=== PATIENT | female | born 1985 | race Caucasian/White ===

== ENCOUNTER 2016-08-02 20:33 | Emergency (ER) | payer SELFPAY ==
[2016-08-02 20:53] VITALS: RESP 18
[2016-08-02] MEDS ORDERED: ONDANSETRON 4 MG/2 ML VIAL IVP STA (21:37)
[2016-08-02] MEDS ORDERED: SODIUM CHLORIDE 0.9% 1,000 ML IV STA (21:37)
[2016-08-02] MEDS ORDERED: cloNIDine HCL 0.1 MG TAB PO STA (21:38)
--- NOTE | 2016-08-02 22:10 | ED ---
Anxiety HPI - General Chief Complaint: Anxiety Stated Complaint: detox Time Seen by Provider: 08/02/16 21:34 Source: patient Mode of arrival: ambulatory - History of Present Illness Initial Comments: Patient complains of withdrawal from opiates. She has generalized myalgias. She has nausea and vomiting. She has no chest pain, belly pain, back pain. She has no lightheadedness or dizziness. She has no focal weakness. She has no fevers or chills. She has no neck pain or stiffness. She was not in a detox center. She is trying to do her own detox a home. - Related Data Home Medications: Previous Rx's Medication Instructions Recorded Ondansetron [Zofran ODT] 4 mg PO Q8HR #30 tab 08/02/16 cloNIDine HCL [Catapres] 0.1 mg PO BID #20 tab 08/02/16 Allergies/Adverse Reactions: Allergies Allergy/AdvReac Type Severity Reaction Status Date / Time No Known Allergies Allergy Verified 08/02/16 20:53 Review of Systems ROS Statement: Those systems with pertinent positive or pertinent negative responses have been documented in the HPI. ROS Other: All systems not noted in ROS Statement are negative. Past Medical History Past Medical History: No Reported History History of Any Multi-Drug Resistant Organisms: None Reported Past Surgical History: No Surgical Hx Reported Past Psychological History: No Psychological Hx Reported Smoking Status: Current every day smoker Past Alcohol Use History: Rare Past Drug Use History: Cocaine, Heroin, Marijuana, Prescription Drug Abuse General Exam Limitations: no limitations General appearance: alert, in no apparent distress Head exam: Present: atraumatic, normocephalic, normal inspection Eye exam: Present: normal appearance, PERRL, EOMI. Absent: scleral icterus, conjunctival injection, periorbital swelling ENT exam: Present: normal exam, mucous membranes moist Neck exam: Present: normal inspection. Absent: tenderness, meningismus, lymphadenopathy Respiratory exam: Present: normal lung sounds bilaterally. Absent: respiratory distress, wheezes, rales, rhonchi, stridor Cardiovascular Exam: Present: regular rate, normal rhythm, normal heart sounds. Absent: systolic murmur, diastolic murmur, rubs, gallop, clicks GI/Abdominal exam: Present: soft, normal bowel sounds. Absent: distended, tenderness, guarding, rebound, rigid Extremities exam: Present: normal inspection, full ROM, normal capillary refill. Absent: tenderness, pedal edema, joint swelling, calf tenderness Back exam: Present: normal inspection Neurological exam: Present: alert, oriented X3, CN II-XII intact Psychiatric exam: Present: normal affect, normal mood Skin exam: Present: warm, dry, intact, normal color. Absent: rash Course Vital Signs 08/02/16 20:49 Temperature 99.1 F Pulse Rate 94 Respiratory 18 Rate Blood Pressure 124/77 O2 Sat by Pulse 99 Oximetry Medical Decision Making - Medical Decision Making Patient complains of symptoms related to opiate withdrawal. Her physical exam is benign. Her vital signs are within acceptable limits. She is given IV fluids and antiemetics. She is tolerating oral intake. She is stable for discharge. Disposition Clinical Impression: Opiate withdrawal Disposition: HOME SELF-CARE Condition: Good Instructions: Opioid Withdrawal (ED) Prescriptions: Ondansetron [Zofran ODT] 4 mg PO Q8HR #30 tab cloNIDine HCL [Catapres] 0.1 mg PO BID #20 tab Time of Disposition: 22:08
[2016-08-02 22:18] LABS: Anion Gap 22 mmol/L; Calcium 10.3 mg/dL (8.4-10.2); Carbon Dioxide 23 mmol/L (22-30); Chloride 101 mmol/L (98-107); Glucose 145 mg/dL (74-99); Non-African American GFR(MDRD) >60 (>60 ml/min/1.73 sqM); Sodium 146 mmol/L (137-145)
[2016-08-02 22:20] LABS: Blood Urea Nitrogen 25 mg/dL (7-17); Potassium 5.2 mmol/L (3.5-5.1)
[2016-08-02 22:46] VITALS: BP 104/72; PULSE 92; TEMP 98.8
== END 2016-08-02 22:44 | disposition home or self-care (01) ==
LOC: EC 20:33
DX: F11.23 Opioid dependence with withdrawal (principal); F17.200 Nicotine dependence, unspecified, uncomplicated
CPT/HCPCS: 99284; 96374; 36415; 80048; J2405; 96361; 96376

== ENCOUNTER 2017-03-11 16:50 | Inpatient (IN) | payer MEDICAID, OTHER ==
--- NOTE | 2017-03-11 17:27 | ED ---
Psych HPI - General Chief Complaint: Psychiatric Symptoms Stated Complaint: Mental Health Time Seen by Provider: 03/11/17 17:03 Source: patient, RN notes reviewed Mode of arrival: ambulatory Limitations: no limitations - History of Present Illness Initial Comments: This a 31-year-old female presents emergency Department with chief complaint of psychiatric evaluation. Patient states that she has been having intermittent suicidal thoughts. Patient states she has a history of drug abuse. Patient states that she was in detention but has not used any heroin since being released 2 weeks ago. Patient states that she is very depressed states that she is miserable person to be around and states that she needs help. Patient denies being homicidal. - Related Data Home Medications Medication Instructions Recorded Confirmed No Known Home Medications [No 03/11/17 03/11/17 Known Home Medications] Allergies Allergy/AdvReac Type Severity Reaction Status Date / Time No Known Allergies Allergy Verified 03/11/17 17:08 Review of Systems ROS Statement: Those systems with pertinent positive or pertinent negative responses have been documented in the HPI. ROS Other: All systems not noted in ROS Statement are negative. Past Medical History Past Medical History: No Reported History History of Any Multi-Drug Resistant Organisms: None Reported Past Surgical History: No Surgical Hx Reported Past Psychological History: Depression Smoking Status: Current every day smoker Past Alcohol Use History: Rare Past Drug Use History: Cocaine, Heroin, Marijuana, Prescription Drug Abuse General Exam Limitations: no limitations General appearance: alert, in no apparent distress Head exam: Present: atraumatic, normocephalic, normal inspection Neck exam: Present: normal inspection. Absent: tenderness, meningismus, lymphadenopathy Respiratory exam: Present: normal lung sounds bilaterally. Absent: respiratory distress, wheezes, rales, rhonchi, stridor Cardiovascular Exam: Present: regular rate, normal rhythm, normal heart sounds. Absent: systolic murmur, diastolic murmur, rubs, gallop, clicks Neurological exam: Present: alert, oriented X3, CN II-XII intact, reflexes normal. Absent: motor sensory deficit Psychiatric exam: Present: normal affect, normal mood Skin exam: Present: warm, dry, intact, normal color. Absent: rash Course Vital Signs 03/11/17 16:52 Temperature 98.5 F Pulse Rate 87 Respiratory 18 Rate Blood Pressure 129/68 O2 Sat by Pulse 98 Oximetry Disposition Clinical Impression: Depression, Drug abuse Disposition: ADMITTED IP TO THIS HOSP Condition: Stable Referrals: None,Stated [Primary Care Provider] - 1-2 days Time of Disposition: 18:02
--- NOTE | 2017-03-11 18:17 | XR ---
EXAMINATION TYPE: XR hand complete RT DATE OF EXAM: 03/11/2017 COMPARISON: NONE HISTORY: Hand swelling TECHNIQUE: 3 views FINDINGS: I see no fracture nor dislocation. Joint spaces are normal. There are no erosions. IMPRESSION: Normal right hand. No sign of inflammatory arthritis.
[2017-03-11] MEDS ORDERED: MAG HYDROX/AL HYDROX/SIMETH 30 ML CUP PO PRN (18:43)
[2017-03-11 18:56] LABS: Appearance,Urine Clear (Clear); Bilirubin,Urine Negative (Negative); Glucose,Urine (UA) 2+ (Negative); Leukocyte Esterase,Urine Negative (Negative); Mucus,Urine Moderate /hpf; Nitrite,Urine Negative (Negative); Particle Count 4903; Protein,Urine Trace (Negative); RBC,Urine 3 /hpf (0-5); Specific Gravity,Urine 1.017 (1.001-1.035); Squamous Epithelial Cell,Urine 2 /hpf (0-4); UA Billing (MACRO vs. MICRO) MICRO; WBC,Urine 6 /hpf (0-5)
[2017-03-11 19:00] LABS: Ketones,Urine 2+ (Negative)
[2017-03-11] MEDS: LORazepam 1 MG TAB PO PRN (20:26)
--- NOTE | 2017-03-11 20:37 | P.MDCNMH ---
History of Present Illness H&P Date: 03/11/17 Chief Complaint: Suicidal ideations Tammy Dawson is a 31-year-old female with history of heroin and crack cocaine usage who presented to the ED with suicidal attempt and continued suicidal ideations. The patient states that she attempted to commit suicide yesterday by using heroin however was unsuccessful. Has never attempted suicide prior to this episode. She reports feeling extremely anxious and has had difficulty sleeping secondary to her anxiety. She states that she last used heroin as well as smoked crack yesterday. Denies any previous medical problems and takes no medications on a daily basis. Denies any current chest pain, shortness of breath, nausea, vomiting diarrhea, fevers, chills or night sweats. Patient states she has been living at a hotel. Review of Systems Constitutional: Patient reports no fever, no chills, no weight changes, no change in appetite Eyes: Patient reports no double vision, no visual changes ENT: Patient reports no rhinorrhea, no post nasal drip, no sore throat Cardiovascular: Patient reports no chest, no edema, no palpitations, no syncope , no orthopnea, no paroxysmal nocturnal dyspnea. Respiratory: Patient reports no dyspnea, no cough, no wheeze Gastrointestinal: Patient reports no nausea, no vomiting, no constipation, no diarrhea Genitourinary: Patient reports no dysuria, no urinary frequency, no hematuria. Musculoskeletal: Patient reports no unusual joint pain, no joint swelling or weakness. Patient reports no muscular pain. Psychiatric: Patient reports anxiety, suicidal ideations, recent suicide attempt. Also reports insomnia. Patient reports no changes in memory. Endocrine: Patient reports no thirst, no polyuria, no cold intolerance, no heat intolerance. Neurological: Patient reports no unusual paresthesias, no seizures, no paresis , no paralysis, no facila droop, no headache. Heme/Lymphatic: Patient reports bruising on both legs. No bleeding tendency, no lymphadenopathy. Allergic/ Immunologic: Patient reports no recent allergic reactions or immunologic history. Skin: Reports areas of excoriations on both legs Past Medical History Past Medical History: No Reported History History of Any Multi-Drug Resistant Organisms: None Reported Past Surgical History: No Surgical Hx Reported Past Psychological History: Anxiety, Depression Smoking Status: Current every day smoker (1 pack per day x 15 years) Past Alcohol Use History: Rare Past Drug Use History: Cocaine (daily user x 1 year), Heroin (daily user x 7 years), Marijuana, Prescription Drug Abuse Medications and Allergies Home Medications Medication Instructions Recorded Confirmed Type No Known Home Medications [No 03/11/17 03/11/17 History Known Home Medications] Allergies Allergy/AdvReac Type Severity Reaction Status Date / Time No Known Allergies Allergy Verified 03/11/17 17:08 Physical Exam Osteopathic Statement: *. No significant issues noted on an osteopathic structural exam other than those noted in the History and Physical/Consult. Vitals: Vital Signs Temp Pulse Pulse Resp BP BP Pulse Ox 03/11/17 19:22 97.1 F L 87 18 124/73 03/11/17 18:45 97.8 F 77 18 135/85 100 03/11/17 16:52 98.5 F 87 18 129/68 98 Intake and Output 03/11/17 03/11/17 03/11/17 06:59 14:59 22:59 Other: Weight 58.967 kg Patient Weight 03/12/17 06:59 Weight 58.967 kg Constitutional:No acute distress, conversant, pleasant. Eyes:Anicteric sclerae, moist conjunctiva, no lid-lag PERRLA ENMT: NC/AT Oropharynx clear, no erythema, exudates Neck:Supple, Firm, no masses, or JVD, No carotid bruits, No thyromegaly Lungs:Clear to auscultation, Clear to percussion, Normal respiratory effort, no accessory muscle use Cardiovascular: Heart regular in rate and rhythm, No murmurs, gallops, or rubs, No peripheral edema Abdominal: Soft, Nontender, no guarding, rebound or rigidity, Abdomen moving with respiration, Normoactive bowel sounds, No hepatomegaly, No splenomegaly, No palpable mass , No abdominal wall hernia noted Skin: Normal temperature, tone, texture, turgor, No induration, No subcutaneous nodules. Numerous small excoriations noted on both legs, R > L. Bruising noted on anterior left lower extremity. No lesions, No ulcers Extremities: No digital cyanosis, No clubbing, Pedal pulses intact and symmetrical, Radial pulses intact and symmetrical, Normal gait and station, No calf tenderness Psychiatric: Alert and oriented to person, place and time, anxious appearing. Neuro: Muscles Strength 5/5 in all 4 extremities, Sensation to light touch grossly present throughout, Cranial nerves II-XII grossly intact, No focal sensory deficits Cranial Nerve Examination - Cranial Nerves Cranial Nerve II- Optic: Intact Cranial Nerve III- Oculomotor: Intact Cranial Nerve IV- Trochlear: Intact Cranial Nerve V- Trigeminal: Intact Cranial Nerve - Abducens: Intact Cranial Nerve VII- Facial: Intact Cranial Nerve VIII- Auditory: Intact Cranial Nerve IX- Glossopharyngeal: Intact Cranial Nerve X- Vagus: Intact Cranial Nerve XI- Accessory: Intact Cranial Nerve XII- Hypoglossal: Intact Results Labs: Abnormal Lab Results - Last 24 Hours (Table) 03/11/17 03/11/17 Range/Units 17:03 17:03 Urine Protein Trace H (Negative) Urine Glucose (UA) 2+ H (Negative) Urine Ketones 2+ H (Negative) Urine Blood Large H (Negative) Urine WBC 6 H (0-5) /hpf Urine Mucus Moderate H (None) /hpf Urine Opiates Screen Detected H (NotDetected) Urine Cocaine Screen Detected H (NotDetected) U Marijuana (THC) Screen Detected H (NotDetected) Assessment and Plan (1) Suicidal ideations Narrative/Plan: Maintain suicidal precautions on mental health unit Your mental health care Current Visit: Yes Status: Acute Code(s): R45.851 - SUICIDAL IDEATIONS SNOMED Code(s): 9947085 (2) Abnormal urinalysis Narrative/Plan: 2+ glucose and 2+ ketones identified on urinalysis. Likely secondary to diet. Check CBC, CMP, mg, phos. Check fingerstick blood glucose Monitor vital signs per unit protocol Current Visit: Yes Status: Acute Code(s): R82.90 - UNSPECIFIED ABNORMAL FINDINGS IN URINE SNOMED Code(s): 496576535 (3) Depression Narrative/Plan: Psychiatric medications per mental health team Maintain suicidal precautions Current Visit: Yes Status: Acute Code(s): F32.9 - MAJOR DEPRESSIVE DISORDER , SINGLE EPISODE, UNSPECIFIED SNOMED Code(s): 17993032 (4) Drug abuse Narrative/Plan: Monitor for signs/symptoms of opioid and cocain withdrawal Benzos PRN withdrawal Current Visit: Yes Status: Acute Code(s): F19.10 - OTHER PSYCHOACTIVE SUBSTANCE ABUSE, UNCOMPLICATED SNOMED Code(s): 94466149 Plan: Check CBC, CMP, Mg, Phos Check fingerstick blood glucose Monitor vital signs per unit protocol Maintain suicide precautions per unit protocol Your mental health care Time with Patient: Greater than 30
[2017-03-11 20:44] VITALS: BMI 20.9
[2017-03-12 06:20] LABS: Glucose,Whole Blood 109 mg/dL (75-99)
[2017-03-12 08:57] LABS: Basophils % (A) 0 %; CHCM 33.6; Eosinophils # (A) 0.2 k/uL (0-0.7); Eosinophils % (A) 3 %; HCT 38.5 % (34.0-46.0); HDW 2.51; HGB 12.7 gm/dL (11.4-16.0); Luc % (Auto) 2; Lymphocytes # (A) 1.2 k/uL (1.0-4.8); Lymphocytes % (A) 22 %; MCH 30.4 pg (25.0-35.0); MCHC 32.8 g/dL (31.0-37.0); MCV 92.5 fL (80.0-100.0); Mean Platelet Volume 7.2; Monocytes # (A) 0.2 k/uL (0-1.0); Monocytes % (A) 4 %; Neutrophils # (A) 3.8 k/uL (1.3-7.7); Neutrophils % (A) 68 %; RBC 4.17 m/uL (3.80-5.40); RDW 14.5 % (11.5-15.5); WBC 5.6 k/uL (3.8-10.6); WBC (Perox) 5.47
[2017-03-12 09:14] LABS: Anion Gap 10 mmol/L; Calcium 8.8 mg/dL (8.4-10.2); Carbon Dioxide 24 mmol/L (22-30); Chloride 109 mmol/L (98-107); Glucose 155 mg/dL (74-99); Non-African American GFR(MDRD) >60 (>60 ml/min/1.73 sqM); Sodium 143 mmol/L (137-145); Total Bilirubin 0.6 mg/dL (0.2-1.3); Total Protein 6.1 g/dL (6.3-8.2)
[2017-03-12] MEDS: NICOTINE 14MG/24HR PATCH TRANSDERM SCH (09:32)
[2017-03-12 09:48] LABS: ALT 41 U/L (9-52); AST 28 U/L (14-36); Alkaline Phosphatase 67 U/L (38-126); Blood Urea Nitrogen 6 mg/dL (7-17); Magnesium 1.9 mg/dL (1.6-2.3); Phosphorus 2.8 mg/dL (2.5-4.5); Potassium 3.5 mmol/L (3.5-5.1)
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
[2017-03-12] MEDS: LORazepam 1 MG TAB PO PRN ×2 (12:11→20:55)
[2017-03-12] MEDS: ACETAMINOPHEN TAB 325 MG TAB PO PRN ×2 (12:11→20:55)
[2017-03-13] MEDS: LORazepam 1 MG TAB PO PRN (08:51)
[2017-03-13] MEDS: NICOTINE 14MG/24HR PATCH TRANSDERM SCH (08:51)
[2017-03-13] MEDS ORDERED: traZODone HCL 50 MG TAB PO PRN (09:41)
--- NOTE | 2017-03-13 09:47 | P.PN ---
Progress Note - Text Interval history: The patient is found in group she follows me to an interview room. She reports having difficulty sleeping last night and subsequently she feels tired. She was able to get some of her meal. She continues to feel anxious and she is experiencing some mild opiate withdrawal. We discussed that she could utilize clonidine if her blood pressure was not too low. We reviewed information I received from her mother. The patient is more alert and attending the interview better today. The patient states that she really doesn' t believe she is experienced any hypomanic or manic episode while sober. With that said we decided to proceed with an antidepressant that could also address her anxiety and we would monitor for any symptoms of provoked hypomania or ariel. Mental status exam: The patient is a female appearing her stated age. She is dressed casually in her own clothing hygiene grooming fair. Eye contacts appropriate. She continues to rock back and forth in her chair. She reports a depressed mood with suicidal ideation as late as last evening. She is endorsing no auditory or visual hallucinations or specific delusions and there appears to be no evidence of psychosis. Thought process for the most part is linear she demonstrates no tangential thinking loose associations or flight of ideas. She remains oriented to person place and date. She demonstrates no verbal or physical aggressiveness. Affect is constricted to blunted. Plan: The patient will be placed on Zoloft 50 mg for depressive and anxiety symptoms. We'll likely plan to titrate the dose further during the course of her admission. We discussed monitoring for symptoms of hypomania or ariel. Trazodone will be used as needed for insomnia. Clonidine will be prescribed for opiate withdrawal symptoms if blood pressure will tolerate. She will be encouraged to attend groups she is encouraged to call for inpatient chemical dependency placement. Vital signs reviewed.
[2017-03-13] MEDS ORDERED: ONDANSETRON 4 MG TAB PO PRN (10:02)
[2017-03-13] MEDS ORDERED: IBUPROFEN 400 MG TAB PO PRN (10:03)
--- NOTE | 2017-03-13 10:05 | P.PN ---
Subjective Progress Note Date: 03/13/17 Principal diagnosis: abnormal TSH Patient is a 31 yo CF with a past medical history of IVDA and tobacco abuse who is currently admitted to the [facility] for suicidal ideation. Patient seen and examined at bedside to review results of her laboratory testing. She complains of withdrawal symptoms. She is shaky, nauseous, irritable, and having pain all over. She is also concerned about her right hand being swollen. She states she may have passed out after her last heroin use. She also has injected into that hand but x-ray was done in the ER which did not show any retained foreign body. She does not follow with family physician. Objective - Vital Signs Vital signs: Vital Signs Temp 97.7 F 03/12/17 06:32 Pulse 82 03/12/17 20:58 Resp 14 03/12/17 20:58 BP 98/70 03/12/17 20:58 Pulse Ox 100 03/11/17 18:45 - Exam General: non toxic, mild distress, appears at stated age Derm: no rashes, no lesions Head: atraumatic, normocephalic, symmetric Eyes: EOMI, no lid lag, anicteric sclera ENT: no post nasal drip, no thrush Mouth: no lip lesion, mucus membranes moist Cardiovascular: S1S2 reg, no murmur, positive posterior tibial pulse bilateral, Lungs: CTA bilateral, no rhonchi, no rales , no accessory muscle use Abdominal: soft, nontender to palpation, no guarding, no appreciable organomegaly Ext: no gross muscle atrophy, no contractures, edema of the right hand without warmth or erythema Neuro: CN II-XI grossly intact, no focal neuro deficits Psych: Alert, oriented, flat affect, withdrawn - Labs CBC & Chem 7: 03/12/17 08:35 03/12/17 08:35 Assessment and Plan Assessment: Subclinical hyperthyroidism - Will need TSH and Free T4 again in 6 weeks - no indications for treatment at this time - Provided info for people clinic on discharge plan Hyperglycemia - suspect stress induced - check A1C Edema right hand - likely due to compression of hand- exercise and elevation encourage - patient and nursing instructed to monitor for signs of erythema, warmth, or fevers - WBC normal. 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 Thank you for allowing us to participate in the care of this patient. We will follow peripherally. Do not hesitate to contact us with questions. Someone can be reached from the [facility] hospitalist group at all hours of the day at [phone].
[2017-03-13] MEDS: SERTRALINE 50 MG TAB PO SCH (11:01)
[2017-03-13] MEDS: ACETAMINOPHEN TAB 325 MG TAB PO PRN ×2 (13:36→20:40)
[2017-03-13] MEDS: cloNIDine HCL 0.1 MG TAB PO PRN ×2 (13:37→20:41)
[2017-03-13 19:37] LABS: Glucose,Whole Blood 104 mg/dL (75-99)
[2017-03-14] MEDS: SERTRALINE 50 MG TAB PO SCH (08:41)
[2017-03-14] MEDS: NICOTINE 14MG/24HR PATCH TRANSDERM SCH (08:42)
[2017-03-14] MEDS: ACETAMINOPHEN TAB 325 MG TAB PO PRN ×2 (08:42→20:10)
[2017-03-14] MEDS: cloNIDine HCL 0.1 MG TAB PO PRN ×2 (08:43→20:10)
--- NOTE | 2017-03-14 09:56 | P.PN ---
Subjective Progress Note Date: 03/14/17 Principal diagnosis: abnormal TSH Patient is a 31 yo CF with a past medical history of IVDA and tobacco abuse who is currently admitted to the [facility] for suicidal ideation. Patient seen and examined to review results of her hemoglobin A1c. Informed it is 5.1 and no need for further followup or intervention. Her hand is less swollen and less painful. She states it has not been red or warm. Objective - Vital Signs Vital signs: Vital Signs Temp 97.9 F 03/14/17 06:46 Pulse 61 03/14/17 06:46 Resp 12 03/14/17 06:46 BP 101/57 03/14/17 06:46 Pulse Ox 100 03/11/17 18:45 - Exam General: non toxic, no distress, appears at stated age Head: atraumatic, normocephalic, symmetric Eyes: EOMI, no lid lag, anicteric sclera Ext: edema of the right hand without warmth or erythema, Range of motion intact in all 5 digits and wrist, edema is decreasing. Psych: Alert, oriented, flat affect, withdrawn - Labs CBC & Chem 7: 03/12/17 08:35 03/12/17 08:35 Labs: Abnormal Lab Results - Last 24 Hours (Table) 03/13/17 Range/Units 19:35 POC Glucose (mg/dL) 104 H (75-99) mg/dL Assessment and Plan Assessment: Subclinical hyperthyroidism - Will need TSH and Free T4 again in 6 weeks - no indications for treatment at this time - Provided info for people clinic on discharge plan Hyperglycemia - suspect stress induced - A1C normal Edema right hand, improving - likely due to compression of hand- exercise and elevation encourage - patient and nursing instructed to monitor for signs of erythema, warmth, or fevers - WBC normal. 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 We will follow peripherally. Do not hesitate to contact us with questions. Someone can be reached from the [facility] hospitalist group at all hours of the day at [phone].
--- NOTE | 2017-03-14 11:02 | P.PN ---
Progress Note - Text Interval history: The patient is found in her room she follows me to an interview room. She states that she continues to have hopeless thoughts she feels extremely anxious. She reports avoiding groups because she thinks people can hear her thoughts. This phenomenon doesn't always occur but she notices it intermittently over the last few years. She reports difficulty sleeping at night although she has been sleeping during the day. She reports that her mother did visit last evening. We continue to review her current symptoms and medication options. Mental status exam: The patient is alert hygiene grooming are adequate she is dressed in her own clothing. Eye contact is intermittent. She again rocks back and forth in her chair. She endorses and anxious mood depression and hopeless thoughts. She feels safe here in the hospital she is endorsing no homicidal ideation intent or plan. Other than having thoughts that people can read her mind she endorses no other symptoms of psychosis. She remains oriented to person place and date. She demonstrates no tangential thinking loose associations or flight of ideas she does not appear hypomanic or manic. Plan: The patient will continue on the Zoloft we will discontinue the trazodone and initiate Seroquel 100 mg at bedtime. We discussed that Seroquel can address symptoms of psychosis mood stabilization and augment antidepressant treatment. We discussed potential benefits and side effects of Seroquel and her questions were answered specifically we discussed weight gain risk. We will continue to monitor her for safety and encourage her participation in the milieu. Vital signs reviewed.
[2017-03-14] MEDS: LORazepam 1 MG TAB PO PRN (14:14)
[2017-03-14] MEDS: QUEtiapine 100 MG TAB PO SCH (20:10)
[2017-03-15] MEDS: SERTRALINE 50 MG TAB PO SCH (08:33)
[2017-03-15] MEDS: NICOTINE 14MG/24HR PATCH TRANSDERM SCH (08:33)
[2017-03-15] MEDS: LORazepam 1 MG TAB PO PRN (08:33)
[2017-03-15] MEDS: ACETAMINOPHEN TAB 325 MG TAB PO PRN ×2 (08:35→20:32)
--- NOTE | 2017-03-15 10:16 | P.PN ---
Progress Note - Text Interval history: The patient is found in her room she follows me to an interview room. She reports having some difficulty sleeping last night. We discussed that she has been laying in bed during the day and this will interfere with her sleep pattern. She describes a depressed mood she feels hopelessly anxious. She states her anxiety is so strong that she feels she just needs to use heroin again. She does have suicidal thoughts as recently as last evening she states those were intense and she thought about acting on them. She did have another phone conversation with her mother. We discussed her son and her feelings towards him. We discussed trying to develop some coping skills to deal with the anxiety rather than avoidance and isolation. Mental status exam: The patient is alert she seated calmly in her chair. Eye contact is appropriate she continues to demonstrate increased psychomotor activity although she rocks in the chair less versus previous sessions. She describes a hopelessly anxious mood with depression and suicidal ideation. She reports no homicidal ideation. She demonstrates no tangential thinking loose associations or flight of ideas. She does not appear hypomanic or manic. Insight and judgment limited. She demonstrates no verbal or physical aggressiveness she demonstrates no abnormal involuntary movements. She endorses no auditory hallucinations or visual hallucinations. She states that sounds appear amplified to her. She also continues to have thoughts that people can read her mind which causes her to change her thoughts frequently. Plan: The patient will continue on the Zoloft we will plan on titrating this further to 100 mg daily. We will start Seroquel 50 mg twice daily in addition to the 100 mg dose. She states that she continues to have thoughts that people can read her mind and we discussed that the Seroquel can help with those symptoms in addition to others. The patient has not yet stabilized she requires continued psychiatric hospitalization. She reports that she is scheduled to start rehab next Saturday we will confirm that date with social work.
[2017-03-15] MEDS: QUEtiapine 50 MG TAB PO SCH ×2 (11:10→13:29)
[2017-03-15] MEDS: QUEtiapine 100 MG TAB PO SCH (20:31)
[2017-03-16] MEDS: SERTRALINE 50 MG TAB PO SCH ×2 (08:02→17:28)
[2017-03-16] MEDS: NICOTINE 14MG/24HR PATCH TRANSDERM SCH (08:02)
[2017-03-16] MEDS: QUEtiapine 50 MG TAB PO SCH ×2 (08:02→11:56)
[2017-03-16] MEDS: LORazepam 1 MG TAB PO PRN (13:39)
[2017-03-16] MEDS ORDERED: SERTRALINE 50 MG TAB PO STA (16:33)
[2017-03-16] MEDS ORDERED: QUEtiapine 50 MG TAB PO STA (16:34)
[2017-03-16] MEDS: QUEtiapine 100 MG TAB PO SCH (21:00)
[2017-03-16] MEDS: IBUPROFEN 400 MG TAB PO PRN (21:01)
--- NOTE | 2017-03-17 07:42 | PN ---
PROGRESS NOTE DATE OF SERVICE: 03/16/2017 CHIEF COMPLAINT: The patient was admitted due to an attempted suicide by heroin overdose. She was depressed. She had hopeless feelings. She was just released from [facility] weeks ago. She has ongoing substance abuse issues. INTERVAL HISTORY: The patient has been doing fair. She had a quiet evening last night. She slept fair today. She has been up and about. She comes out in the day area. She interacts with others. She attends groups. She has been appropriate in her behavior. She says that she did not sleep too well last night and has not been sleeping well. She says that she has quite a bit of anxiety. She says that she gets some shaky feelings at times. She does bounce her legs when she tries to sit still. She has been doing some walking for relaxation. It is noted that when we reviewed her history, she essentially had 2 months of sobriety when she was in [facility]. She had been actively using substances prior to that. Since she has been out of [facility] she has been using crack cocaine on a daily basis and gave mixed information about whether or not she has been using heroin on any regular basis. She ultimately said that she only used it for the overdose attempt. She has not had change in her general health. She tolerates her psychotropic medications. MENTAL STATUS: Patient gave good eye contact. Psychomotor activity was restless. She bounced her legs. Her thoughts were clear. She was interactive. Her affect was a little anxious. Her mood dysphoric. She did not seem to be significantly distressed. There was no indication of thought disorder. ASSESSMENT : I will continue the current diagnosis and treatment plan. I will increase her nighttime Seroquel to 200 mg at bedtime. I will increase her Zoloft to 100 mg at bedtime. I encouraged her to avoid use of Ativan. We had an extensive discussion regarding withdrawal issues. I indicated to the patient that ongoing withdrawal is likely a major issue as far as her symptoms of anxiety and that I would anticipate some improvement if we titrate up on the Seroquel. She has had some pain issues related to bruises. I will increase her Motrin to 800 mg q.8 hours p.r.n. The patient seemed to have fair insight in regards to her current status and was in agreement with the treatment plan. We will continue to focus on stabilization and discharge planning. MMODL / LISAN: [id number] / RAMAN
[2017-03-17] MEDS: QUEtiapine 50 MG TAB PO SCH ×2 (09:08→12:59)
[2017-03-17] MEDS: NICOTINE 14MG/24HR PATCH TRANSDERM SCH (09:08)
[2017-03-17] MEDS: SERTRALINE 50 MG TAB PO SCH (09:08)
[2017-03-17] MEDS: IBUPROFEN 400 MG TAB PO PRN ×2 (09:09→20:58)
[2017-03-17] MEDS: LORazepam 1 MG TAB PO PRN (09:10)
[2017-03-17] MEDS ORDERED: QUEtiapine 50 MG TAB PO STA (12:19)
[2017-03-17] MEDS: BENZTROPINE MESYLATE 1 MG TAB PO SCH ×2 (12:59→20:56)
--- NOTE | 2017-03-17 20:45 | PN ---
PROGRESS NOTE DATE OF SERVICE: 03/17/2017. CHIEF COMPLAINT: The patient was admitted due to an attempted suicide by heroin overdose. She was depressed. She had hopeless feelings. She was just [facility] ago. She has ongoing substance abuse issues. INTERVAL HISTORY: The patient has been doing fair. She had a quiet evening last night. She said she only slept 3 hours. Today she has been up and about. She comes out of the day areas. She interacts with others. She attends groups. It is noteworthy that I had talked to the patient about a walking program to help with physiologic relaxation. Patient appears to have been making a good effort at keeping up with this. Her primary complaint today is poor sleep. She continues with some tremor. She has not had other changes in general health. She appears to tolerate her psychotropic medications. MENTAL STATUS: The patient gave good eye contact. She was a little restless. She bounced her legs. She answered questions appropriately. Her thoughts were clear. Her affect was a little anxious. Mood was somewhat down though not significantly so. She did not appear to be distressed. ASSESSMENT: I will continue the current diagnosis and general treatment plan. I have added Cogentin as some of her anxiety and physical complaints of shakiness may relate to EPS from Seroquel. Her Seroquel dose has been increased, which may exacerbate that issue. I will add Desyrel 100 mg at bedtime. She will continue Zoloft 100 mg a day. I encouraged the patient to steer away from Ativan given her substance use issues and likely the current acute withdrawal issues related to her crack cocaine use over the last 2 weeks. The patient appears to be making progress. We did review issues regarding withdrawal. We will continue to focus on stabilization and discharge planning. MMODL / IJN: [id number] /
[2017-03-17] MEDS: traZODone HCL 100 MG TAB PO SCH (20:56)
[2017-03-17] MEDS: QUEtiapine 100 MG TAB PO SCH (20:56)
[2017-03-18] MEDS: SERTRALINE 50 MG TAB PO SCH (09:12)
[2017-03-18] MEDS: QUEtiapine 100 MG TAB PO SCH ×3 (09:13→21:19)
[2017-03-18] MEDS: hydrOXYzine PAMOATE 25 MG CAP PO PRN ×2 (09:14→16:00)
[2017-03-18] MEDS: IBUPROFEN 400 MG TAB PO PRN ×2 (09:14→21:21)
--- NOTE | 2017-03-18 10:53 | P.PN ---
Progress Note - Text Interval history: The patient is found in the dining room she follows me to an interview room. She reports mild improvement in mood but states she continues to have feelings that others can read her thoughts. She states that it is a significant source of anxiety for her. She reports having excessive anxiety still. She again inquires into medications that can alleviate symptoms of anxiety more quickly. Staff report that she has been trying to attend some groups. She does verbalize it is her intention to attend chemical dependency treatment this . Mental status exam: The patient is alert she is dressed in her own clothing. Hygiene grooming fair. Eye contacts appropriate. She continues to rock forwards and backwards in her chair during the session. She endorses a depressed mood with suicidal thoughts and anxiety. She does feel safe here in the hospital. She endorses concerns that others can read her thoughts and she feels she needs to change them frequently so they can't. She reports no homicidal ideation. She demonstrates no verbal or physical aggressiveness. She does have increased psychomotor activity. Insight and judgment limited. Plan: The patient will continue on her current medications however we will increase the Seroquel to 100 mg twice a day 200 mg at bedtime. Cogentin will be discontinued. Vistaril 25 mg up to twice daily will be added if needed. She will continue on Zoloft that was titrated over the weekend. Trazodone was added as well we will monitor for effect. Vital signs reviewed. She requires continued psychiatric hospitalization for acute safety concerns
[2017-03-18] MEDS: traZODone HCL 100 MG TAB PO SCH (21:19)
[2017-03-19] MEDS: QUEtiapine 100 MG TAB PO SCH ×3 (09:08→20:14)
[2017-03-19] MEDS: IBUPROFEN 400 MG TAB PO PRN ×2 (09:09→20:15)
[2017-03-19] MEDS: hydrOXYzine PAMOATE 25 MG CAP PO PRN ×2 (09:09→15:37)
[2017-03-19] MEDS: SERTRALINE 50 MG TAB PO SCH (09:09)
--- NOTE | 2017-03-19 09:54 | P.PN ---
Progress Note - Text Interval history: The patient is found in the hallway she follows me to an interview room. She reports that her sleep was mildly improved last evening. She ended up getting the 300 mg dose of Seroquel at bedtime. She reports trying to attend more groups. She continues to have significant anxiety which causes her to feel uncomfortable. She feels safe here in the hospital. We discussed the importance of her fully complying with inpatient chemical dependency treatment. She indicates barriers will be participating with so many other people all day long. We again reviewed her psychotropic medications in terms of their intended purposes and the timeframes to allow for them to demonstrate efficacy. Mental status exam: The patient is alert she is dressed in her own clothing eye contact is appropriate. She continues to demonstrate increased psychomotor activity. She reports her mood is anxious this does cause her to get depressed at times. She is trying to facilitate more hopeful thinking. She will have some suicidal thinking but states she is able to keep herself safe here in the hospital. She is reporting no homicidal ideation intent or plan. There is no evidence of psychosis. She reports that some of her paranoid thinking is starting to reduce. She demonstrates no verbal or physical aggressiveness. She does not appear hypomanic or manic. Plan: The patient will continue on her current medications we have just titrated the Seroquel further. She indicates for the first time that her symptoms of psychosis are starting to improve. She requires continued psychiatric hospitalization as she would likely decompensate if discharged at this time. She does have inpatient chemical dependency treatment scheduled for morning. Vital signs reviewed.
[2017-03-19] MEDS: ACETAMINOPHEN TAB 325 MG TAB PO PRN (15:37)
[2017-03-19] MEDS: traZODone HCL 100 MG TAB PO SCH (20:14)
[2017-03-19] MEDS ORDERED: MAG HYDROX/AL HYDROX/SIMETH 30 ML CUP ONE (23:11)
[2017-03-20] MEDS: hydrOXYzine PAMOATE 25 MG CAP PO PRN ×2 (08:57→20:13)
[2017-03-20] MEDS: QUEtiapine 100 MG TAB PO SCH ×3 (08:57→20:12)
[2017-03-20] MEDS: SERTRALINE 50 MG TAB PO SCH (08:57)
[2017-03-20] MEDS: IBUPROFEN 400 MG TAB PO PRN ×2 (08:57→17:28)
--- NOTE | 2017-03-20 10:55 | P.PN ---
Progress Note - Text Interval history: The patient is found in group she follows me to an interview room. She reports an increase in anxiety as she anticipates being discharged tomorrow to go to rehab. Her mother will be transporting her there. We reviewed her psychotropic medications. She was able to sleep last night. Appetite is stable. She is observed socializing with peers at times. She has no questions or concerns regarding her medications. Mental status exam: The patient is alert hygiene remains adequate she is dressed in her own clothing. Eye contact is intermittent. Speech is fluent and spontaneous nonpressured. She reports her mood is anxious at times. She is reporting no hopelessness thinking or any suicidal or homicidal ideation intent or plan. There is no report of auditory or visual hallucinations. She states yesterday she had no thoughts of people being able to read her mind but today as she feels more anxious she has some of those thoughts. There is no verbal or physical aggressiveness. No abnormal involuntary movements. Insight and judgment improving. Affect is constricted. Plan: The patient will continue on her current psychotropic medications psychiatrically speaking it appears that she is stabilizing and she will be appropriate for discharge tomorrow to go to inpatient chemical dependency treatment. Again at length we discussed goals for the immediate future. We discussed which relationships in her life that are repairable. She endorses always having the support of her mother. We will continue to monitor her for safety and encourage her participation in the milieu.
[2017-03-20] MEDS: ACETAMINOPHEN TAB 325 MG TAB PO PRN (12:43)
[2017-03-20] MEDS: traZODone HCL 100 MG TAB PO SCH (20:13)
[2017-03-21 07:02] VITALS: BP 107/58; PULSE 78; RESP 16; TEMP 97.6
[2017-03-21] MEDS: IBUPROFEN 400 MG TAB PO PRN (08:28)
[2017-03-21] MEDS: QUEtiapine 100 MG TAB PO SCH (08:29)
[2017-03-21] MEDS: SERTRALINE 50 MG TAB PO SCH (08:30)
--- NOTE | 2017-03-21 08:58 | P.DS ---
Providers Date of admission: 03/11/17 18:32 Expected date of discharge: 03/21/17 Attending physician: Sylvester Hauser Consults: 03/11/17 18:43 Consult Physician Routine Consulting Provider: Eliot Parks Consult Reason/Comments: follow up H & P Do you want consulting provider notified?: Yes Primary care physician: Stated None - Discharge Diagnosis(es) (1) Depression Current Visit: Yes Status: Acute Priority: High (2) Opioid use disorder, severe, dependence Current Visit: Yes Status: Acute Priority: High (3) Cocaine use disorder, mild, abuse Current Visit: Yes Status: Acute Priority: Medium Hospital Course: This patient is a 31-year-old single female who was admitted to the mental health unit through the emergency room for suicidal ideation. She reported that she attempted suicide via heroin overdose 1-2 days prior to this presentation to the hospital. She reports being depressed for numerous months she reported being tearful and feeling hopeless. She reported excessive sleep with low energy and feelings of anhedonia. She was recently in long term for 2 months and released 2 weeks prior to this admission. She had been engaged in use of opiates crack cocaine and marijuana. For full details please refer to my psychiatric evaluation dated 03/12/2017. Summary of hospital course: The patient was admitted to the mental health unit she signed in voluntarily. We reviewed her presenting symptoms. It's clear that she has a history of depressive episodes but it was unclear if she was having hypomanic or manic episodes. Her frequent use of substances made it difficult to establish a diagnosis of hypomania or ariel. With her permission I contacted her mother for collateral information and her mother was uncertain as well. She supposed that the patient could have bipolar disorder but there was no concrete evidence. We decided to initiate Zoloft for depressive and anxiety symptoms as was titrated to 100 mg daily. We additionally added Seroquel to augment the Zoloft for depression and perhaps provide a mood stabilizing influence. Seroquel was titrated during the course of the hospitalization to 100 mg twice daily and 200 mg at bedtime. Trazodone was used for sleep. We attempted to use Vistaril but she found ineffective for anxiety. She did focus on anxiety symptoms while here and we discussed the need for her to develop coping skills and strategies for dealing with anxiety. She was willing to arrange inpatient chemical dependency treatment and she is scheduled to go to [facility] this morning. The patient reported a resolution of any acute suicidal ideation. She noted having feelings as though people could read her mind but she feels low symptoms have improved during the course of this stay as well. Mental status exam: The patient is alert she is dressed in her own clothing. Eye contact appropriate speech is fluent spontaneous nonpressured. She reports that her mood is better she is reporting no suicidal or homicidal ideation intent or plan. She is endorsing no specific delusions. There is no observed evidence of psychosis. Thought process is linear she demonstrates no tangential thinking loose associations or flight of ideas. She does not appear hypomanic or manic. Affect is constricted. She demonstrates no verbal or physical aggressiveness. She demonstrates no abnormal involuntary movements. She remains oriented to person place and date. Impressions 1. Depression and specified rule out bipolar depression, rule out major depressive disorder, opioid use disorder, continues disorder, cannabis use disorder, rule out PTSD, rule out generalized anxiety disorder 2. Significant psychosocial dysfunction due to psychiatric symptoms including substance use disorders Plan: The patient will be discharged from mental health unit today. Her mother will pick her up and bring her to [facility] for inpatient chemical dependency treatment. The patient will continue on Zoloft 100 mg daily and Seroquel 100 mg twice daily and 200 mg at bedtime. She may continue using trazodone 100 mg at bedtime. There is no imminent safety risk she is appropriate for content continued care as an outpatient. She is appropriate for transfer to [facility]. She is to abstain from all use of alcohol marijuana and other illicit drugs. We discussed the use of these substances will elevate her safety risk. She is instructed to return to the hospital with any acute safety concerns. Patient Condition at Discharge: Stable Plan - Discharge Summary Discharge Rx Participant: No New Discharge Prescriptions: New QUEtiapine [SEROquel] 100 mg PO 0900,1300 #60 tab Sertraline HCl [Zoloft] 100 mg PO DAILY #30 tab traZODone HCL [Desyrel] 100 mg PO HS #30 tab QUEtiapine FUMARATE [SEROquel] 200 mg PO HS #30 tablet Discharge Medication List QUEtiapine FUMARATE [SEROquel] 200 mg PO HS #30 tablet 03/21/17 [Rx] QUEtiapine [SEROquel] 100 mg PO 0900,1300 #60 tab 03/21/17 [Rx] Sertraline HCl [Zoloft] 100 mg PO DAILY #30 tab 03/21/17 [Rx] traZODone HCL [Desyrel] 100 mg PO HS #30 tab 03/21/17 [Rx] Follow [facility]ment(s)/Ref[facility] [place] [facility]] - 03/21/17 11:45 am (03/21/17 at 1145 ) None,Stated [Primary Care Provider] - 1-2 days Activity/Diet/Wound Care/Special Instructions: Follow with the [facility] in 4-6 weeks for repeat TSH and free T4 Address: [address] [place] [address] Remove all weapons and firearms from the home; Refrain from street drugs and alcohol; Regular Diet; Activity as tolerated; Keep all scheduled follow-up appointments for continuity of care; Any problems call the Crisis Line at [phone] or 276 in case of emergency; If you need med. refills contact your PCP or your follow-up Psychiatrist.
== END 2017-03-21 09:43 | disposition home or self-care (01) | DRG 881 ==
LOC: EC 16:50 → 3MHU 18:32
PROVIDERS: ADMIT Psychiatry & Neurology Psychiatry; ATTEND Psychiatry & Neurology Psychiatry
DX: F32.9 Major depressive disorder, single episode, unspecified (principal); R45.851 Suicidal ideations; F11.23 Opioid dependence with withdrawal; F41.9 Anxiety disorder, unspecified; F14.10 Cocaine abuse, uncomplicated; R45.84 Anhedonia; E05.90 Thyrotoxicosis, unspecified without thyrotoxic crisis or storm; F12.90 Cannabis use, unspecified, uncomplicated; F17.200 Nicotine dependence, unspecified, uncomplicated; R73.9 Hyperglycemia, unspecified; R60.9 Edema, unspecified; Z91.5 Personal history of self-harm; Z81.8 Family history of other mental and behavioral disorders; Z71.6 Tobacco abuse counseling; Z59.0 Homelessness; Z79.899 Other long term (current) drug therapy
CPT/HCPCS: 80053; 80306; 81001; 81025; 82075; 83036; 83735; 84100; 84439; 84443; 85025; 99285

== ENCOUNTER 2017-10-24 09:57 | Emergency (ER) | payer MEDICAID, OTHER ==
[2017-10-24] MEDS ORDERED: cefTRIAXone IN SWFI 2,000 MG/20 ML SYRINGE IVP STA (10:20)
[2017-10-24] MEDS ORDERED: ACETAMINOPHEN TAB 500 MG TAB PO STA (10:20)
[2017-10-24] MEDS ORDERED: MORPHINE SULFATE 2 MG/ML SYRINGE IV STA (10:22)
[2017-10-24] MEDS ORDERED: ONDANSETRON 4 MG/2 ML VIAL IVP STA (10:22)
[2017-10-24] MEDS ORDERED: KETOROLAC 30 MG/ML 1 ML VIAL IVP STA ×2 (10:36→14:11)
[2017-10-24] MEDS: SODIUM CHLORIDE 0.9% 500 ML IV SCH ×3 (10:38→12:30)
--- NOTE | 2017-10-24 11:18 | XR ---
EXAMINATION TYPE: XR chest 2V DATE OF EXAM: 10/24/2017 COMPARISON: NONE HISTORY: Chest pain TECHNIQUE: Frontal and lateral views of the chest are obtained. FINDINGS: There is no focal air space opacity, pleural effusion, or pneumothorax seen. The cardiac silhouette size is within normal limits. The osseous structures are intact. IMPRESSION: No acute cardiopulmonary process.
[2017-10-24 11:47] LABS: Basophils % (A) 0 %; Eosinophils % (A) 0 %; HCT 35.2 % (34.0-46.0); HGB 12.1 gm/dL (11.4-16.0); Lymphocytes # (A) 0.5 k/uL (1.0-4.8); Lymphocytes % (A) 6 %; MCH 29.8 pg (25.0-35.0); MCHC 34.3 g/dL (31.0-37.0); MCV 87.1 fL (80.0-100.0); Mean Platelet Volume 7.3; Monocytes # (A) 0.6 k/uL (0-1.0); Monocytes % (A) 7 %; Neutrophils # (A) 6.7 k/uL (1.3-7.7); Neutrophils % (A) 83 %; Platelet Count 101 k/uL (150-450); RBC 4.04 m/uL (3.80-5.40); RDW 12.8 % (11.5-15.5); WBC 8.1 k/uL (3.8-10.6)
[2017-10-24 11:56] LABS: INR 1.1 (<1.2); Partial Thromboplastin Time 26.1 sec (22.0-30.0); Prothrombin Time 10.7 sec (9.0-12.0)
[2017-10-24 12:53] LABS: ALT 66 U/L (9-52); AST 29 U/L (14-36); Albumin 3.5 g/dL (3.5-5.0); Alkaline Phosphatase 95 U/L (38-126); Anion Gap 16 mmol/L; Blood Urea Nitrogen 8 mg/dL (7-17); Calcium 8.2 mg/dL (8.4-10.2); Carbon Dioxide 19 mmol/L (22-30); Chloride 94 mmol/L (98-107); Glucose 101 mg/dL (74-99); Sodium 129 mmol/L (137-145); Total Bilirubin 0.7 mg/dL (0.2-1.3); Total Protein 6.4 g/dL (6.3-8.2)
[2017-10-24 12:59] LABS: Potassium 3.9 mmol/L (3.5-5.1)
[2017-10-24 13:03] LABS: D-Dimer 3.34 mg/L FEU (<0.60)
[2017-10-24 13:17] LABS: Appearance,Urine Cloudy (Clear); Bilirubin,Urine Negative (Negative); Blood,Urine Negative (Negative); Color,Urine Dark Yellow; Glucose,Urine (UA) 1+ (Negative); Ketones,Urine Negative (Negative); Leukocyte Esterase,Urine Trace (Negative); Mucus,Urine Many /hpf; Nitrite,Urine Negative (Negative); PH, Urine 6.5 (5.0-8.0); Protein,Urine 3+ (Negative); RBC,Urine 9 /hpf (0-5); Specific Gravity,Urine 1.026 (1.001-1.035); Squamous Epithelial Cell,Urine 9 /hpf (0-4); WBC,Urine 14 /hpf (0-5)
--- NOTE | 2017-10-24 14:17 | CT ---
CT CHEST FOR PULMONARY EMBOLISM. EXAMINATION TYPE: CT angio chest DATE OF EXAM: 10/24/2017 INDICATION: Left sided chest pain. CT DLP: 138.7 mGycm, Automated exposure control for dose reduction was used. CONTRAST: Patient injected with 70 mL of Isovue 370. COMPARISON: NONE TECHNIQUE: CT of the chest is performed on a spiral scan at 2 mm thick sections. Study is performed with intravenous contrast timed for evaluation for pulmonary embolism. This will limit additional po rtions of the evaluation. 3-D MIP images reconstructed by the technologist are reviewed on the compu ter in the coronal and sagittal planes. FINDINGS: No persistent filling defects are evident to suggest an acute pulmonary embolism. No mediastinal or hilar adenopathy enlarged by CT criteria is evident. The ascending aorta diameter at the level of the main pulmonary artery is 2.6 cm. The main pulmonary artery diameter at the bifur cation is 2.7 cm. Bibasilar consolidations are present. Correlate for atelectasis. Minimal bilateral pleural effusions are present. Some infiltrate or pneumonitis is within the cardiomediastinal mid region lingula. Serie s 5 image 42 this should be followed to clearing. Underlying mass is not excluded. Limited CT section through the upper abdomen are unremarkable. IMPRESSIONS: 1. No acute pulmonary embolism. 2. Small bilateral pleural effusions with consolidations at the bilateral lung bases. 3. Small area of pneumonitis change within the anterior medial left lung. Follow-up is recommended.
--- NOTE | 2017-10-24 14:17 | ED ---
Chest Pain HPI - General Chief Complaint: Chest Pain Stated Complaint: CHEST AND BACK PAIN Time Seen by Provider: 10/24/17 10:08 Source: patient Mode of arrival: wheelchair Limitations: no limitations - History of Present Illness Initial Comments: 32 years O female complaining about chest pain, chest pain started about 2 days ago, is worse with deep breaths she also had a fever chills and she is feeling tachycardic she has no history of heart disease no history of pulmonary embolism or DVT review of system is unremarkable otherwise - Related Data Previous Rx's Medication Instructions Recorded Amoxic-Pot Clav 875-125Mg 1 tab PO Q12HR #20 tablet 10/24/17 [Augmentin 875-125] Azithromycin [Zithromax Tri-Bhaevsh] 500 mg PO DAILY #3 tab 10/24/17 Allergies Allergy/AdvReac Type Severity Reaction Status Date / Time No Known Allergies Allergy Verified 10/24/17 10:26 Review of Systems ROS Statement: Those systems with pertinent positive or pertinent negative responses have been documented in the HPI. ROS Other: All systems not noted in ROS Statement are negative. Past Medical History Past Medical History: No Reported History History of Any Multi-Drug Resistant Organisms: None Reported Past Surgical History: No Surgical Hx Reported Past Psychological History: Anxiety, Depression Smoking Status: Current every day smoker Past Alcohol Use History: Rare Past Drug Use History: Cocaine, Heroin, Marijuana, Methamphetamine, Opiates, Prescription Drug Abuse General Exam - General Exam Comments Initial Comments: General: The patient is awake and alert, in no distress, and does not appear acutely ill. Skin: Skin is warm and dry and no rashes or lesions are noted. Eye: Pupils are equal, round and reactive to light, extra-ocular movements are intact; there is normal conjunctiva bilaterally. Ears, nose, mouth and throat: There are moist mucous membranes and no oral lesions. Neck: The neck is supple, there is no tenderness or JVD. Cardiovascular: There is a regular rate and rhythm. No murmur, rub or gallop is appreciated. Wrist tachycardia Respiratory: To auscultation bilateral, crease breath sounds bilateral Gastrointestinal: Soft, non-distended, non-tender abdomen without masses or organomegaly noted. There is no rebound or guarding present. Bowel sounds are unremarkable. Back: There is no tenderness to palpation in the midline. There is no obvious deformity. Musculoskeletal: Normal ROM, no tenderness, There is no pedal edema. There is no calf tenderness or swelling. No cords were appreciated. Neurological: CN II-XII intact, Cranial nerves III through XII are intact. There are no obvious motor or sensory deficits. Coordination appears grossly intact. Speech is normal. Psychiatric: Cooperative, appropriate mood & affect, normal judgment. Limitations: no limitations Course Vital Signs 10/24/17 10/24/17 10/24/17 09:59 12:28 14:05 Temperature 100.9 F H 100.2 F H Pulse Rate 135 H 102 H 89 Respiratory 20 18 19 Rate Blood Pressure 90/66 105/59 107/59 O2 Sat by Pulse 96 100 99 Oximetry 10/24/17 14:25 Temperature 97.9 F Pulse Rate 90 Respiratory 15 Rate Blood Pressure 99/58 O2 Sat by Pulse 98 Oximetry EKG is sinus tachycardia ventricular rate is 121 ID interval is 120 QRS duration is 84 QT/QTC 360/434 review of this EKG does not reveal any ST elevation or ST depression there are some mom mild artifacts in the chest leads Reassessment reveals that CT chest changes still pending delaying the disposition as CBC, CMP are unremarkable, chest x-ray was unremarkable the CT chest to confirm pneumonia, she got her antibiotics considering she is 32 and she has smoked I recommend that she stays in for 3 sets of cardiac 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 He is is comfortable going home rather she wants to go home she is advised to take her antibiotics and lots of hydration and return to the ER if symptoms get worse she agrees - Reevaluation(s) Reevaluation #1: she is also orthostatic I would recommend that she stayes in the hospital 10/24/17 15:38 Disposition Clinical Impression: Pneumonia, Pleuritic chest pain Disposition: HOME SELF-CARE Condition: Good Instructions: Pleurisy (ED) Prescriptions: Amoxic-Pot Clav 875-125Mg [Augmentin 875-125] 1 tab PO Q12HR #20 tablet Azithromycin [Zithromax Tri-Bhavesh] 500 mg PO DAILY #3 tab Is patient prescribed a controlled substance at d/c from ED?: No Referrals: None,Stated [Primary Care Provider] - 1-2 days
[2017-10-24] MEDS ORDERED: SODIUM CHLORIDE 0.9% 1,000 ML IV ONE (14:26)
[2017-10-24] MEDS ORDERED: DEXAMETHASONE SOD PHOSPHATE 10 MG/ML 1 ML VIAL IV STA (14:28)
[2017-10-24 16:21] VITALS: BP 101/55; PULSE 84; RESP 18; TEMP 97.7
== END 2017-10-24 16:22 | disposition home or self-care (01) ==
LOC: EC 09:57
DX: J18.9 Pneumonia, unspecified organism (principal); R00.0 Tachycardia, unspecified; F17.200 Nicotine dependence, unspecified, uncomplicated; Z53.20 Procedure and treatment not carried out because of patient's decision for unspecified reasons
CPT/HCPCS: 99285; 96374; 96375 ×2; 96376; 96361 ×3; 36415; 85379; 80053; 83605; 84484; 85025; 85610; 85730; 81001; 87040; 87086; 71046; 71275; J1100; J0696; J1885; Q9967

== ENCOUNTER 2020-12-10 00:02 | Inpatient (IN) | payer MEDICAID, OTHER ==
[2020-12-10 03:46] LABS: Amphetamine Screen,Urine Not Detected (NotDetected); Barbiturate Screen,Urine Not Detected (NotDetected); Benzodiazepines Screen,Urine Not Detected (NotDetected); Cocaine Screen,Urine Detected (NotDetected); Methadone Screen, Urine Not Detected (NotDetected); Opiate Screen,Urine Not Detected (NotDetected); Oxycodone Screen, Urine Not Detected (NotDetected); Phencyclidine Screen,Urine Not Detected (NotDetected); Tricyclic Antidepressant,Urine Not Detected (NotDetected); Urn Cannabinoid Scrn Detected (NotDetected)
--- NOTE | 2020-12-10 04:21 | ED ---
Psych HPI - General Chief Complaint: Psychiatric Symptoms Stated Complaint: Mental health Time Seen by Provider: 12/10/20 00:29 Source: patient Mode of arrival: ambulatory - History of Present Illness Initial Comments: This patient is a 35-year-old woman who presents with complaint that she is having auditory hallucinations and delusional thought content. Complaint: other -: days(s) Associated Psychiatric Symptoms: auditory hallucinations, delusions History of same: Yes Quality: getting worse Improves With: none Worsens With: drug use Context: recent drug abuse Associated Symptoms: denies other symptoms - Related Data Previous Rx's Medication Instructions Recorded Amoxic-Pot Clav 875-125Mg 1 tab PO Q12HR #20 tablet 10/24/17 [Augmentin 875-125] Azithromycin [Zithromax Tri-Bhavesh] 500 mg PO DAILY #3 tab 10/24/17 Allergies Allergy/AdvReac Type Severity Reaction Status Date / Time No Known Allergies Allergy Verified 12/10/20 00:21 Review of Systems ROS Statement: Those systems with pertinent positive or pertinent negative responses have been documented in the HPI. ROS Other: All systems not noted in ROS Statement are negative. Constitutional: Denies: fever, weakness Eyes: Denies: vision change Respiratory: Denies: cough, dyspnea Cardiovascular: Denies: chest pain, palpitations Gastrointestinal: Denies: abdominal pain, vomiting, diarrhea Genitourinary: Denies: dysuria, hematuria Musculoskeletal: Denies: back pain Skin: Denies: rash Neurological: Denies: headache Past Medical History Past Medical History: No Reported History History of Any Multi-Drug Resistant Organisms: None Reported Past Surgical History: No Surgical Hx Reported Past Psychological History: Anxiety, Depression Smoking Status: Current every day smoker Past Alcohol Use History: Rare Past Drug Use History: Cocaine, Heroin, Marijuana, Methamphetamine, Opiates, Prescription Drug Abuse General Exam General appearance: alert, in no apparent distress Head exam: Present: atraumatic, normocephalic Eye exam: Present: normal appearance. Absent: scleral icterus, conjunctival injection Respiratory exam: Present: normal lung sounds bilaterally. Absent: respiratory distress, wheezes, rales, rhonchi, stridor Cardiovascular Exam: Present: regular rate, normal rhythm, normal heart sounds. Absent: systolic murmur, diastolic murmur, rubs, gallop GI/Abdominal exam: Present: soft. Absent: distended, tenderness, guarding, rebound, rigid, mass Extremities exam: Present: normal inspection, normal capillary refill. Absent: pedal edema, calf tenderness Back exam: Present: normal inspection. Absent: CVA tenderness (R), CVA tenderness (L) Neurological exam: Present: alert Psychiatric exam: Present: anxious. Absent: depressed, agitated, flat affect, homicidal ideation, suicidal ideation Skin exam: Present: warm, dry, intact, normal color. Absent: rash Course Vital Signs 12/10/20 00:17 Temperature 98 F Pulse Rate 91 Respiratory 19 Rate Blood Pressure 141/86 O2 Sat by Pulse 98 Oximetry Medical Decision Making - Lab Data Lab Results 12/10/20 Range/Units 03:17 Urine Opiates Screen Not Detected (NotDetected) Ur Oxycodone Screen Not Detected (NotDetected) Urine Methadone Screen Not Detected (NotDetected) Ur Propoxyphene Screen Not Detected (NotDetected) Ur Barbiturates Screen Not Detected (NotDetected) U Tricyclic Antidepress Not Detected (NotDetected) Ur Phencyclidine Scrn Not Detected (NotDetected) Ur Amphetamines Screen Not Detected (NotDetected) U Methamphetamines Scrn Not Detected (NotDetected) U Benzodiazepines Scrn Not Detected (NotDetected) Urine Cocaine Screen Detected H (NotDetected) U Marijuana (THC) Screen Detected H (NotDetected)
[2020-12-10] MEDS ORDERED: MAG HYDROX/AL HYDROX/SIMETH 30 ML CUP PO PRN (10:03)
[2020-12-10] MEDS ORDERED: MAGNESIUM HYDROXIDE 2,400 MG/10 ML CUP PO PRN (10:03)
[2020-12-10] MEDS ORDERED: HALOPERIDOL LACTATE 5 MG/ML 1 ML VIAL IM PRN (10:07)
[2020-12-10] MEDS ORDERED: LORazepam 2 MG/ML INJ IM PRN (10:07)
[2020-12-10] MEDS ORDERED: NICOTINE POLACRILEX 2 MG GUM BUCCAL PRN (16:44)
--- NOTE | 2020-12-10 19:02 | P.CONS ---
History of Present Illness - Reason for Consult Consult date: 12/10/20 Medical management - Chief Complaint Hallucinations - History of Present Illness This patient is a 35-year-old woman who presents with complaint that she is having auditory hallucinations and delusional thought content. Patient is somewhat irritable at this time not wanting to talk in detail but denies any past or current medical history Review of Systems REVIEW OF SYSTEMS: CONSTITUTIONAL: No fever, no malaise, no fatigue. HEENT: No recent visual problems or hearing problems. Denied any sore throat. CARDIOVASCULAR: No chest pain, orthopnea, PND, no palpitations, no syncope. PULMONARY: No shortness of breath, no cough, no hemoptysis. GASTROINTESTINAL: No diarrhea, no nausea, no vomiting, no abdominal pain. NEUROLOGICAL: No headaches, no weakness, no numbness. HEMATOLOGICAL: Denies any bleeding or petechiae. GENITOURINARY: Denies any burning micturition, frequency, or urgency. MUSCULOSKELETAL/RHEUMATOLOGICAL: Denies any joint pain, swelling, or any muscle pain. ENDOCRINE: Denies any polyuria or polydipsia. The rest of the 14-point review of systems is negative. Past Medical History Past Medical History: No Reported History History of Any Multi-Drug Resistant Organisms: None Reported Past Surgical History: No Surgical Hx Reported Past Psychological History: Anxiety, Depression Smoking Status: Current every day smoker Past Alcohol Use History: Rare Past Drug Use History: Cocaine, Heroin, Marijuana, Methamphetamine, Opiates, Prescription Drug Abuse Medications and Allergies Home Medications Medication Instructions Recorded Confirmed Type Amoxic-Pot Clav 875-125Mg 1 tab PO Q12HR #20 tablet 10/24/17 Rx [Augmentin 875-125] Azithromycin [Zithromax Tri-Bhavesh] 500 mg PO DAILY #3 tab 10/24/17 Rx Allergies Allergy/AdvReac Type Severity Reaction Status Date / Time No Known Allergies Allergy Verified 12/10/20 00:21 Physical Exam Vitals: Vital Signs Temp Pulse Pulse Resp BP BP Pulse Ox 12/10/20 05:00 98.4 F 64 16 98/61 97 12/10/20 00:17 98 F 91 19 141/86 98 Intake and Output 12/10/20 12/10/20 12/10/20 06:59 14:59 22:59 Other: Weight 56.699 kg PHYSICAL EXAMINATION: GENERAL: The patient is alert and oriented x3, not in any acute distress. Well developed, well nourished. HEENT: Pupils are round and equally reacting to light. EOMI. No scleral icterus. No conjunctival pallor. Normocephalic, atraumatic. No pharyngeal erythema. No thyromegaly. CARDIOVASCULAR: S1 and S2 present. No murmurs, rubs, or gallops. PULMONARY: Chest is clear to auscultation, no wheezing or crackles. ABDOMEN: Soft, nontender, nondistended, normoactive bowel sounds. No palpable organomegaly. MUSCULOSKELETAL: No joint swelling or deformity. EXTREMITIES: No cyanosis, clubbing, or pedal edema. NEUROLOGICAL: Gross neurological examination did not reveal any focal deficits. SKIN: No rashes. Results Labs: Abnormal Lab Results - Last 24 Hours (Table) 12/10/20 Range/Units 03:17 Urine Cocaine Screen Detected H (NotDetected) U Marijuana (THC) Screen Detected H (NotDetected) Assessment and Plan Assessment: 1. Acute psychosis; patient does have long-standing psych history, patient not available medications she has been on and reports noncompliance - Your management 2. Substance abuse; urine drug screen is positive for cocaine and marijuana; counseling done to refrain from substance abuse 3. DVT prophylaxis; early ambulation 4. GI prophylaxis
[2020-12-10] MEDS: LORazepam 1 MG TAB PO PRN (20:13)
[2020-12-10] MEDS: ACETAMINOPHEN TAB 325 MG TAB PO PRN (20:15)
--- NOTE | 2020-12-10 23:15 | P.HP ---
Psychiatric H&P - . H&P Date: 12/10/20 History & Physical: IDENTIFYING Data: The patient is a 35-year-old single female who currently lives with her boyfriend, employed, has psychiatric history of depression, opioid use disorder, cocaine use disorder, and probably PTSD, denies any medical problems. The patient has been admitted to our inpatient psychiatric services after been transferred from [facility]. Patient was initially self-referred to the ED because of paranoia, delusions, and auditory hallucinations. The patient has been admitted on voluntary basis to our service. CHIEF COMPLAINT: "Hearing people at my window." HISTORY OF PRESENT ILLNESS: The patient reports that she follow up with [facility] for mental health and he couldn't remember her medications or when was the last time seen by them. She reports having suicidal ideation but denies any homicidal thoughts. Reports constantly feeling violent with severe agitation and anger outburst. Patient admitted for using cocaine recently but denies any recent use of heroin or IVDU. Reports maintaining sobriety from heroin for the last 4 years. Denies any commanding hallucinations but reports continued to hear people chattering at her window. She feels her boyfriend cheating on her and other people talking about her. Always feeling angry and easily agitated but denies any active homicidal ideation. Patient was not fully cooperative with assessment because of agitation and couldn't remember details about her treatment or medications. She reports feeling depressed with sometimes lack of motivation but her main mood problem is the agitation and anger. When discussed medications with the p atient, she refused to take any medication at this time and requested to contact her home to obtain list of her medications. When discussed with the patient that [facility] will not be available until Saturday, she prefers to wait and not to be started on any other medications. Patient reports symptoms of depression with decreased motivation and suicidal ideation. Reports always feeling anxious, irritable, with racing thoughts, not easy to relax, and having panic attacks. Denies any PTSD symptoms. No report of manic symptoms including times with elevated mood, grandiosity, or absence need to sleep without taking any any drugs. Denies any history of SIB. PAST PSYCHIATRIC HISTORY: Previous diagnoses: Patient couldn't recall her psychiatric diagnosis with [facility] Previous psychiatric hospitalizations: Denies any previous psychiatric hospitalization Previous suicide attempts: Any previous suicidal attempts. Previous outpatient psychiatric treatment: Patient currently connected with [facility] for outpatient psychiatric treatment. Current psychiatric medications: Couldn't recall her current medications. Previous medication trials: Recall her previous medication trials. SUBSTANCE ABUSE HISTORY: Nicotine: Smokes 6 cigarettes daily. Alcohol: Denies drinking alcohol Opioid: Or history of opioid use disorder was IV use in the past last time was 4 years ago. Previous treatment with Suboxone and methadone and he decided to get off Suboxone recently after failed drug screen testing Cocaine/ other stimulants: Admitted for recent use of cocaine by smoking crack Reports previous substance use disorder treatment including outpatient and inpatient treatment Social History: Patient currently lives with her boyfriend and [id number] daughter. She is currently unemployed. Completed high school and some college education. Patient was raised by her parents, denied any history of learning disability during school time. Denies any history of childhood trauma. FAMILY HISTORY: Psychiatric Illness: Reports bipolar disorder and depression runs in her family including her mother was diagnosed with depression and bipolar. Completed Suicides: Denies. Medical History: Denies MENTAL STATUS EVALUATION: Appearance: Appears stated age, poorly groomed, average body built, and no specific features. Gait/ posture: Steady gait, normal arm swinging, no abnormal movements, with relaxed posture. Attitude and Behavior: agitated, poor eye contact during course of interview. Motor Activity: increased psychomotor activity. Speech: spontaneous, increased rate, rhythm, and articulation. Normal volume. pressured. Language: Articulating, naming objects and repeat phrases. Mood: irritable, agitated, depressed Affect: increased intensity. Thought process: Linear, goal-directed. Association: Intact. Thought content: paranoid delusions, suicidal thoughts, Denies homicidal thoughts, Denies intentions, or plans. Perception: Reports auditory hallucinations Alertness: No impairment. Concentration: Impaired Orientation: impaired Insight regarding psychiatric condition: limited Judgment regarding daily activities and social situation: limited Impulse control: limited Strengths: Stable general medical condition. Housing Challenges: Substance use. Poor compliance with treatment Allergies Allergy/AdvReac Type Severity Reaction Status Date / Time No Known Allergies Allergy Verified 12/10/20 00:21 Vital Signs Temp 98.4 F 12/10/20 05:00 Pulse 64 12/10/20 05:00 Resp 16 12/10/20 05:00 BP 98/61 12/10/20 05:00 Pulse Ox 97 12/10/20 05:00 Intake & Output 12/09/20 12/10/20 12/10/20 18:59 06:59 18:59 Weight 56.699 kg Review of Lab results: Laboratory Last Values Urine Opiates Screen Not Detected (NotDetected) 12/10/20 03:17 Ur Oxycodone Screen Not Detected (NotDetected) 12/10/20 03:17 Urine Methadone Screen Not Detected (NotDetected) 12/10/20 03:17 Ur Propoxyphene Screen Not Detected (NotDetected) 12/10/20 03:17 Ur Barbiturates Screen Not Detected (NotDetected) 12/10/20 03:17 U Tricyclic Antidepress Not Detected (NotDetected) 12/10/20 03:17 Ur Phencyclidine Scrn Not Detected (NotDetected) 12/10/20 03:17 Ur Amphetamines Screen Not Detected (NotDetected) 12/10/20 03:17 U Methamphetamines Scrn Not Detected (NotDetected) 12/10/20 03:17 U Benzodiazepines Scrn Not Detected (NotDetected) 12/10/20 03:17 Urine Cocaine Screen Detected (NotDetected) H 12/10/20 03:17 U Marijuana (THC) Screen Detected (NotDetected) H 12/10/20 03:17 Assessment: substance-induced mood disorder. Rule out substance-induced psychosis. Rule out schizoaffective disorder. Cocaine use disorder, moderate. Opioid use disorder, sustained remission. Nicotine use disorder. TREATMENT PLAN/RECOMMENDATIONS: Medical Decision making: The patient presented with psychotic symptoms including delusions and hallucinations and reports suicidal ideation. The patient at high risk to hurt herself if she is not in the inpatient setting. The patient's psychiatric symptoms are not stable and she needs further management of psychiatric medications and further planning for discharge. Therefore, inpatient level of care is needed. Continue the patient inpatient for safety. Continue the patient under 15 minutes safe check for safety. Continue treatment of mood dysregulation and psychotic symptoms. The patient will also be provided with individual therapy, group therapy, substance abuse counseling, gain insight, and coping skills. Consider medical consultation if any acute medical issue arise. Medications: Patient refused to discuss any psychiatric medications and requested to wait until obtaining information about her current psych meds from [facility]. She couldn't give the names of her current medications. NRT Prognosis is guarded, contingent on patient has been compliant with his medications and has been followed up closely with outpatient mental health provider after discharge. The patient will be assessed on daily basis, and will be discharged back to his outpatient mental health provider upon stabilization. EXPECTED LENGTH OF STAY: 7 days. 12/10/20 16:26
[2020-12-11] MEDS: ACETAMINOPHEN TAB 325 MG TAB PO PRN ×2 (08:38→20:20)
[2020-12-11] MEDS: LORazepam 1 MG TAB PO PRN ×2 (08:39→20:20)
[2020-12-11 09:56] LABS: ALT 10 U/L (4-34); AST 17 U/L (14-36); African American GFR (CKD) >90 (>60 ml/min/1.73 sqM); Albumin 4.1 g/dL (3.5-5.0); Alkaline Phosphatase 50 U/L (38-126); Anion Gap 7 mmol/L; Blood Urea Nitrogen 8 mg/dL (7-17); Calcium 9.2 mg/dL (8.4-10.2); Carbon Dioxide 28 mmol/L (22-30); Chloride 106 mmol/L (98-107); Glucose 98 mg/dL (74-99); Non-African American GFR(CKD) >90 (>60 ml/min/1.73 sqM); Potassium 4.4 mmol/L (3.5-5.1); Sodium 141 mmol/L (137-145); Total Bilirubin 0.2 mg/dL (0.2-1.3); Total Protein 6.4 g/dL (6.3-8.2)
[2020-12-11 09:57] LABS: Basophils % (A) 1 %; Eosinophils # (A) 0.1 k/uL (0-0.7); Eosinophils % (A) 2 %; HCT 37.9 % (34.0-46.0); HGB 12.9 gm/dL (11.4-16.0); Lymphocytes # (A) 1.4 k/uL (1.0-4.8); Lymphocytes % (A) 30 %; MCH 31.4 pg (25.0-35.0); MCV 92.4 fL (80.0-100.0); Mean Platelet Volume 7.9; Monocytes # (A) 0.3 k/uL (0-1.0); Monocytes % (A) 6 %; Neutrophils # (A) 2.8 k/uL (1.3-7.7); Neutrophils % (A) 60 %; Platelet Count 208 k/uL (150-450); RDW 11.8 % (11.5-15.5); WBC 4.7 k/uL (3.8-10.6)
[2020-12-11] MEDS: NICOTINE 21MG/24HR PATCH TRANSDERM SCH (12:10)
[2020-12-11] MEDS: ARIPiprazole 5 MG TAB PO SCH (14:08)
[2020-12-11 17:44] LABS: Chol/HDL Ratio 3.63; Cholesterol 149 mg/dL (0-200); LDL Cholesterol,Calculated 92.2 mg/dL (0.0-131.0)
[2020-12-11] MEDS: MIRTAZAPINE 15 MG TAB PO SCH (20:20)
--- NOTE | 2020-12-11 23:34 | P.PN ---
Progress Note - Text Progress Note Date: 12/11/20 Subjective: Patient was seen today as a cross coverage for Dr. Lora. The patient was evaluated, chart reviewed, case discussed with the treatment team. Patient reports better sleep last night, and appetite was reported as " fair". Patient has not been going to groups and other unit activities. The patient agreed to start on her home psych medications which have been started recently by [facility] including Abilify and Remeron. Doses verified by nursing and the patient was recently started on Abilify 5 mg daily and Remeron 15 mg at bedtime. Patient reports her depression is relatively better today but continued to feel guilt and worried about how his her family will deal with her and how they think about her anger outbursts. She is interested to go for inpatient rehab treatment after discharge from here for cocaine use as she reported cocaine May Or anger and mood swings worse. She denies any current suicidal or homicidal ideation. Denies any hallucinations, paranoid ideation or delusions. No manic symptoms reported or addressed. Objective: Vitals has been reviewed. Mental status examination; MENTAL STATUS EVALUATION: Appearance: Appears stated age, poorly groomed, average body built, and no specific features. Gait/ posture: Steady gait, normal arm swinging, no abnormal movements, with relaxed posture. Attitude and Behavior: agitated, poor eye contact during course of interview. Motor Activity: increased psychomotor activity. Speech: spontaneous, increased rate, rhythm, and articulation. Normal volume. pressured. Language: Articulating, naming objects and repeat phrases. Mood: irritable, agitated, depressed Affect: increased intensity. Thought process: Linear, goal-directed. Association: Intact. Thought content: Denies paranoid delusions, denies suicidal thoughts, Denies homicidal thoughts, Denies intentions, or plans. Perception: Denies auditory hallucinations Alertness: No impairment. Concentration: Not impaired Orientation: Intact to time, person, place, and situation Insight regarding psychiatric condition: Fair Judgment regarding daily activities and social situation: Fair Impulse control: Fair Assessment: Mood disorder, unspecified. substance-induced mood disorder. Rule out substance-induced psychosis. Rule out schizoaffective disorder. Cocaine use disorder, moderate. Opioid use disorder, sustained remission. Nicotine use disorder. Plan: Continue inpatient level of care due to need for further stabilization. Precautions: Continue 15 minutes check for safety. Consider medical consultation if any acute medical issues arise. Provide the patient individual, group therapy, substance use disorder counseling to give better insight and learn coping skills. Medications: Abilify 5 mg QD for mood stabilization and psychotic symptoms. Remeron 15 mg HS for depression, anxiety and to help with insomnia. NRT Continue as needed medications for psychiatric emergencies including psychosis, agitation and anxiety. Continue non-psychiatric medications for medical conditions as recommended by the medical team. Discharge patient to OUTPATIENT services upon a stabilization
[2020-12-12 07:14] VITALS: BP 112/55; PULSE 70; RESP 14; TEMP 98.1
[2020-12-12] MEDS: ARIPiprazole 5 MG TAB PO SCH (08:52)
[2020-12-12] MEDS: NICOTINE 21MG/24HR PATCH TRANSDERM SCH (08:52)
[2020-12-12] MEDS: ACETAMINOPHEN TAB 325 MG TAB PO PRN ×2 (08:52→17:50)
[2020-12-12] MEDS: LORazepam 1 MG TAB PO PRN ×2 (08:53→17:48)
--- NOTE | 2020-12-12 12:12 | P.PN ---
Progress Note - Text Progress Note Date: 12/12/20 Interval History: Patient was seen [wandering the hallways] and was directable and agreeable to speak with public relations writer in the office. [patient appeared to have a constricted affect however states that she is doing better today overall. She states that she is still having some minor withdrawal symptoms from her using a significant amount of crack before coming into the hospital. she states that she was using approximately $50 a day of crack for the past 2 years. She claims that she wants the stay sober after this discharge and claims that she is willing to go to rehab. She will be given the access number today by the social worker delinquency prevention. Patient claims that the medications have been helping her. She has fairly superficial insight into her mental health condition and her substance use. She is denying any depression today her anxiety. She states she is able to sleep fairly last night. She claims that she is going to some groups. At this time patient denies any suicidal or homical ideations, intent or plan. Patient denies any auditory, visual hallucinations and denies any paranoia or delusions. Patient denies any side effects from the medications and has been compliant with meds. Mental Status Exam: General Appearance: [Patient appears to be stated age is alert, directable, and cooperative.] Behavior: [Patient is calmly seated without any agitated behavior.]constricted affect Speech: Patient's speech is fluent and nonpressured. Mood/Affect: Mood is improving mildly, affect is congruent and constricted. Suicidality/Homicidality: Patient denies having any suicidal or homicidal ideation intent or plan. Perceptions: Patient denies any visual hallucinations [and denies any auditory hallucinations] Though content/process: [There is no evidence of any delusional thought content and thought process is linear and goal-directed.] Memory and concentration: AOX3, grossly intact for the purposes of this session Judgment and insight: Improving mildly Assessment psychosis unspecified Rule out schizoaffective disorder vs substance induced psychotic episode Cocaine use disorder Opioid use disorder, sustained remission. Nicotine use disorder Plan: -Patient continues to meet criteria for inpatient psychiatric admission for symptom stabilization and safety. Patient has signed [adult voluntary form and] [medication consent] and was placed in patient's chart. -Medications: continue the Remeron 15 mg daily at bedtime for mood/insomnia, Abilify 5 mg daily for mood stabilization/psychosis. -When necessary Ativan and Haldol for agitation/aggression. -NRT - [nicotine patch] -SW on board for discharge planning. Encouraged the patient to participate in milieu. social worker delinquency prevention to give patient access line number for rehab. Likely discharge tomorrow.
[2020-12-12] MEDS: MIRTAZAPINE 15 MG TAB PO SCH (20:37)
[2020-12-13] MEDS: ARIPiprazole 5 MG TAB PO SCH (08:34)
[2020-12-13] MEDS: LORazepam 1 MG TAB PO PRN (08:34)
[2020-12-13] MEDS: ACETAMINOPHEN TAB 325 MG TAB PO PRN (08:34)
[2020-12-13] MEDS: NICOTINE 21MG/24HR PATCH TRANSDERM SCH (08:34)
--- NOTE | 2020-12-13 08:58 | P.DS ---
Providers Date of admission: 12/10/20 03:38 Expected date of discharge: 12/13/20 Attending physician: Estiven Lora MD Consults: 12/10/20 14:12 Consult Physician Routine Consulting Provider: Figueroa Stapleton Consult Reason/Comments: history and physical Do you want consulting provider notified?: Yes Primary care physician: Tong Ulrich - Discharge Diagnosis(es) (1) Unspecified psychosis Current Visit: Yes Status: Acute Priority: High (2) Cocaine use disorder Current Visit: Yes Status: Acute Priority: High (3) Opioid use disorder, mild, in sustained remission Current Visit: Yes Status: Acute Priority: Low (4) Nicotine dependence Current Visit: Yes Status: Acute Priority: Low (5) Cannabis abuse Current Visit: Yes Status: Acute Priority: Medium Hospital Course: Admission HPI: Admission note was completed by Dr. Ramos "The patient is a 35-year-old single female who currently lives with her boyfriend, employed, has psychiatric history of depression, opioid use disorder, cocaine use disorder, and probably PTSD, denies any medical problems. The patient has been admitted to our inpatient psychiatric services after been transferred from [facility]. Patient was initially self-referred to the ED because of paranoia, delusions, and auditory hallucinations. The patient has been admitted on voluntary basis to our service. The patient reports that she follow up with [facility] for mental health and he couldn't remember her medications or when was the last time seen by them. She reports having suicidal ideation but denies any homicidal thoughts. Reports constantly feeling violent with severe agitation and anger outburst. Patient admitted for using cocaine recently but denies any recent use of heroin or IVDU. Reports maintaining sobriety from heroin for the last 4 years. Denies any commanding hallucinations but reports continued to hear people chattering at her window. She feels her boyfriend cheating on her and other people talking about her. Always feeling angry and easily agitated but denies any active homicidal ideation. Patient was not fully cooperative with assessment because of agitation and couldn't remember details about her treatment or medications. She reports feeling depressed with sometimes lack of motivation but her main mood problem is the agitation and anger. When discussed medications with the patient, she refused to take any medication at this time and requested to contact her home to obtain list of her medications. When discussed with the patient that [facility] will not be available until Saturday, she prefers to wait and not to be started on any other medications. Patient reports symptoms of depression with decreased motivation and suicidal ideation. Reports always feeling anxious, irritable, with racing thoughts, not easy to relax, and having panic attacks. Denies any PTSD symptoms. No report of manic symptoms including times with elevated mood, grandiosity, or absence need to sleep without taking any any drugs. Denies any history of SIB." Hospital course: Upon admission to the unit patient was initially psychotic and going through withdrawals. Patient was however directable and agreeable to commence treatment and signed adult voluntary form. Patient got along well with other patients on the unit and followed unit protocol. Patient was compliant with the medications and denied any side effects throughout hospital course. Patient was started on Abilify 5 mg daily for mood stabilization/psychosis. Patient was also started on Remeron 15 mg daily at bedtime for mood/insomnia. Patient spoke of her stressors and engaged in therapy both group and individual. Patient was also seen by medical team for history and physical exam. Throughout the course of the hospitalization patient gradually improved with regards to mood, anxiety, psychosis, sleep and became more future oriented with improved insight and judgment. On the day of discharge patient denied any suicidal or homicidal ideations intent or plan denied any auditory or visual hallucinations. Patient endorsed wanting to live for her future and her sobriety. The patient denied any access to guns or weapons. Patient denied any paranoia and did not endorse any delusions. Patient does have a significant history of substance abuse and w as counseled on abstaining from all substances including alcohol and marijuana. Patient was offered inpatient rehab and will be calling the access line number for an intake date at [facility] when she gets home as patient did not want to call while she was in the hospital. Patient was also counseled on the medications and need for regular compliance and was encouraged to follow-up with their outpatient appointment for mental health and also for primary care. Prior to discharge a family meeting will be arranged by social services designee to answer any questions and ensure safety upon discharge. Mental status exam: General Appearance: Patient appears to be thin, stated age is alert, pleasant, and cooperative. Patient is in no acute distress and has improved hygiene and grooming Behavior: Patient is calmly seated without any agitated behavior. Speech: Patient's speech is fluent and nonpressured. Mood/Affect: Patient reports their mood is "good", affect is congruent and euthymic. Suicidality/Homicidality: Patient denies having any suicidal or homicidal ideation intent or plan. Perceptions: Patient denies any auditory or visual hallucinations. Though content/process: There is no evidence of any delusional thought content and thought process is linear and goal-directed. more future oriented Memory and concentration: AOX3, grossly intact for the purposes of this session. Can spell "WORLD" backwards correctly. Judgment and insight: chronically poor, however has improved with guarded prognosis Impression: Psychosis unspecified, rule out schizoaffective disorder versus drug induced psychosis Cocaine use disorder Opioid use disorder, sustained remission Nicotine dependence cannabis abuse Plan: -Continue with discharge today as patient has improved and stabilized psychiatrically and is not currently an imminent threat to herself and/or others. Patient will remain at chronically elevated risk for harm to self and/or others due to her impulsivity and polysubstance abuse. -Continue medications: Abilify 5 mg daily for mood stabilization/psychosis, Remeron 15 mg daily at bedtime for mood/insomnia. -Patient was counseled on the need for medication compliance and appropriate follow-up at mental health and also primary care for medical issues. Patient verbalized understanding and agreed. -Social work to arrange for and conduct family meeting to ensure safety upon discharge and answer any questions/concerns. Social work also to arrange for patients follow up appointments for psychiatric care along with follow up with primary care provider. -Patient counseled on abstaining from recreational drugs and marijuana and alcohol. Was informed/educated on the adverse effects on their physical and mental health. Patient verbally agreed and understood. Patient received the access line number to call for [facility] once she gets home as she did not want to call in the hospital. -Patient was instructed to return to the hospital or seek immediate medical care if their psychiatric or medical symptoms do worsen or reoccur. Allergies Allergy/AdvReac Type Severity Reaction Status Date / Time No Known Allergies Allergy Verified 12/10/20 00:21 Laboratory Results WBC 4.7 k/uL (3.8-10.6) 12/11/20 09:30 RBC 4.10 m/uL (3.80-5.40) 12/11/20 09:30 Hgb 12.9 gm/dL (11.4-16.0) 12/11/20 09:30 Hct 37.9 % (34.0-46.0) 12/11/20 09:30 MCV 92.4 fL (80.0-100.0) 12/11/20 09:30 MCH 31.4 pg (25.0-35.0) 12/11/20 09:30 MCHC 34.0 g/dL (31.0-37.0) 12/11/20 09:30 RDW 11.8 % (11.5-15.5) 12/11/20 09:30 Plt Count 208 k/uL (150-450) 12/11/20 09:30 MPV 7.9 12/11/20 09:30 Neutrophils % 60 % 12/11/20 09:30 Lymphocytes % 30 % 12/11/20 09:30 Monocytes % 6 % 12/11/20 09:30 Eosinophils % 2 % 12/11/20 09:30 Basophils % 1 % 12/11/20 09:30 Neutrophils # 2.8 k/uL (1.3-7.7) 12/11/20 09:30 Lymphocytes # 1.4 k/uL (1.0-4.8) 12/11/20 09:30 Monocytes # 0.3 k/uL (0-1.0) 12/11/20 09:30 Eosinophils # 0.1 k/uL (0-0.7) 12/11/20 09:30 Basophils # 0.0 k/uL (0-0.2) 12/11/20 09:30 Sodium 141 mmol/L (137-145) 12/11/20 09:30 Potassium 4.4 mmol/L (3.5-5.1) 12/11/20 09:30 Chloride 106 mmol/L (98-107) 12/11/20 09:30 Carbon Dioxide 28 mmol/L (22-30) 12/11/20 09:30 Anion Gap 7 mmol/L 12/11/20 09:30 BUN 8 mg/dL (7-17) 12/11/20 09:30 Creatinine 0.64 mg/dL (0.52-1.04) 12/11/20 09:30 Est GFR (CKD-EPI)AfAm >90 (>60 ml/min/1.73 sqM) 12/11/20 09:30 Est GFR (CKD-EPI)NonAf >90 (>60 ml/min/1.73 sqM) 12/11/20 09:30 Glucose 98 mg/dL (74-99) 12/11/20 09:[address] Glu mg/dL 97 12/11/20 09:30 Hemoglobin A1c 5.0 % (4.0-6.0) 12/11/20 09:30 Calcium 9.2 mg/dL (8.4-10.2) 12/11/20 09:30 Total Bilirubin 0.2 mg/dL (0.2-1.3) 12/11/20 09:30 AST 17 U/L (14-36) 12/11/20 09:30 ALT 10 U/L (4-34) 12/11/20 09:30 Alkaline Phosphatase 50 U/L (38-126) 12/11/20 09:30 Total Protein 6.4 g/dL (6.3-8.2) 12/11/20 09:30 Albumin 4.1 g/dL (3.5-5.0) 12/11/20 09:30 Triglycerides 79.0 mg/dL (0.0-149.0) 12/11/20 09:30 Cholesterol 149 mg/dL (0-200) 12/11/20 09:30 LDL Cholesterol, Calc 92.2 mg/dL (0.0-131.0) 12/11/20 09:30 VLDL Cholesterol, Calc 15.80 mg/dL (5.00-40.00) 12/11/20 09:30 HDL Cholesterol 41.0 mg/dL (40.0-60.0) 12/11/20 09:30 Cholesterol/HDL Ratio 3.63 12/11/20 09:30 TSH 1.130 mIU/L (0.465-4.680) 12/11/20 09:30 Urine Opiates Screen Not Detected (NotDetected) 12/10/20 03:17 Ur Oxycodone Screen Not Detected (NotDetected) 12/10/20 03:17 Urine Methadone Screen Not Detected (NotDetected) 12/10/20 03:17 Ur Propoxyphene Screen Not Detected (NotDetected) 12/10/20 03:17 Ur Barbiturates Screen Not Detected (NotDetected) 12/10/20 03:17 U Tricyclic Antidepress Not Detected (NotDetected) 12/10/20 03:17 Ur Phencyclidine Scrn Not Detected (NotDetected) 12/10/20 03:17 Ur Amphetamines Screen Not Detected (NotDetected) 12/10/20 03:17 U Methamphetamines Scrn Not Detected (NotDetected) 12/10/20 03:17 U Benzodiazepines Scrn Not Detected (NotDetected) 12/10/20 03:17 Urine Cocaine Screen Detected (NotDetected) H 12/10/20 03:17 U Marijuana (THC) Screen Detected (NotDetected) H 12/10/20 03:17 Vital Signs Temp 98.1 F 12/12/20 07:13 Pulse 70 12/12/20 07:13 Resp 14 12/12/20 07:13 BP 112/55 12/12/20 07:13 Pulse Ox 97 12/10/20 05:00 Patient Condition at Discharge: Stable Plan - Discharge Summary New Discharge Prescriptions: New ARIPiprazole [Abilify] 5 mg PO DAILY 30 Days tab Nicotine 21Mg/24Hr Patch [Habitrol] 1 patch TRANSDERM DAILY 14 Days patch Mirtazapine [Remeron] 15 mg PO HS 30 Days tab Discontinued Amoxic-Pot Clav 875-125Mg [Augmentin 875-125] 1 tab PO Q12HR #20 tablet Azithromycin [Zithromax Tri-Bhavesh] 500 mg PO DAILY #3 tab Discharge Medication List ARIPiprazole [Abilify] 5 mg PO DAILY 30 Days tab 12/13/20 [Rx] Mirtazapine [Remeron] 15 mg PO HS 30 Days tab 12/13/20 [Rx] Nicotine 21Mg/24Hr Patch [Habitrol] 1 patch TRANSDERM DAILY 14 Days patch 12/13/20 [Rx] Follow up Appointment(s)/Referral(s): Tong Ulrich DO [Primary Care Provider] - 1 Week Activity/Diet/Wound Care/Special Instructions: Activity and diet as tolerated. Avoid the use of street drugs and alcohol. Take all medications as prescribed. When you are in need of refills on your medications please contact your medical provider and/or outpatient psychiatrist to have this done. Please go to scheduled outpatient appointment for aftercare treatment. If symptoms return or become worse, call the crisis line at and/or go to the nearest emergency room for evaluation. Discharge Disposition: HOME SELF-CARE
== END 2020-12-13 09:47 | disposition home or self-care (01) | DRG 885 ==
LOC: EC 00:02 → 3MHU 03:38
PROVIDERS: ADMIT Psychiatry & Neurology Psychiatry; ATTEND Psychiatry & Neurology Psychiatry
DX: F25.9 Schizoaffective disorder, unspecified (principal); F19.951 Other psychoactive substance use, unspecified with psychoactive substance-induced psychotic disorder with hallucinations; R45.851 Suicidal ideations; F17.200 Nicotine dependence, unspecified, uncomplicated; F11.11 Opioid abuse, in remission; F14.10 Cocaine abuse, uncomplicated; F43.10 Post-traumatic stress disorder, unspecified; F22 Delusional disorders; Z91.19 Patient's noncompliance with other medical treatment and regimen; F32.9 Major depressive disorder, single episode, unspecified; F12.10 Cannabis abuse, uncomplicated; F39 Unspecified mood [affective] disorder; G47.00 Insomnia, unspecified; Z56.0 Unemployment, unspecified
CPT/HCPCS: 80053; 80061; 80306; 82075; 83036; 84443; 85025; 99284

== ENCOUNTER 2021-03-30 03:57 | Emergency (ER) | payer OTHER ==
[2021-03-30 04:08] VITALS: BP 151/88; PULSE 118; RESP 20; TEMP 98.9
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
== END 2021-03-30 05:14 | disposition home or self-care (01) ==
LOC: EC 03:57
DX: T30.0 Burn of unspecified body region, unspecified degree (principal); X58.XXXA Exposure to other specified factors, initial encounter
CPT/HCPCS: 93005; 99283

== ENCOUNTER 2021-04-21 01:55 | Emergency (ER) | payer OTHER ==
[2021-04-21 01:59] VITALS: BP 122/77; PULSE 82; RESP 18; TEMP 99.3
[2021-04-21] MEDS ORDERED: Acetaminophen-Codeine 300-30mg TAB PO STA (02:26)
[2021-04-21] MEDS ORDERED: PENICILLIN VK 500MG STARTER 4 TAB BTL PO STA (02:26)
[2021-04-21] MEDS ORDERED: PENICILLIN V POTASSIUM 250 MG TAB PO STA (02:26)
[2021-04-21] MEDS ORDERED: ACET/COD 300 MG/30 MG STARTER PACK 6 TAB BTL PO STA (02:26)
--- NOTE | 2021-04-21 02:31 | ED ---
ENT HPI - General Chief complaint: Dental/Oral Stated complaint: Dental Pain Time Seen by Provider: 04/21/21 02:21 Source: patient, RN notes reviewed, old records reviewed Mode of arrival: ambulatory Limitations: no limitations - History of Present Illness Initial comments: This is a 35-year-old female to the emergency department today. Patient Dese fo r evaluation regards to pain severe tooth pain. No significant history of tooth pain or toothache before. No prior pulled. No trauma. No significant swelling. Difficulty biting or chewing pain is severe. No fevers. MD complaint: tooth pain -: hour(s) Location: tooth # Severity: severe Severity scale (1-10): 8 Quality: stabbing, aching Consistency: constant Improves with: none, cold therapy Context- Dental: poor dental care Associated Symptoms: gum swelling, toothache - Related Data Previous Rx's Medication Instructions Recorded ARIPiprazole [Abilify] 5 mg PO DAILY 30 Days tab 12/13/20 Mirtazapine [Remeron] 15 mg PO HS 30 Days tab 12/13/20 Nicotine 21Mg/24Hr Patch [Habitrol] 1 patch TRANSDERM DAILY 14 Days 12/13/20 patch Penicillin V Potassium [Pen Vee K] 500 mg PO Q6HR #28 tablet 04/21/21 Allergies Allergy/AdvReac Type Severity Reaction Status Date / Time No Known Allergies Allergy Verified 04/21/21 01:59 Review of Systems ROS Statement: Those systems with pertinent positive or pertinent negative responses have been documented in the HPI. ROS Other: All systems not noted in ROS Statement are negative. Past Medical History Past Medical History: No Reported History History of Any Multi-Drug Resistant Organisms: None Reported Past Surgical History: No Surgical Hx Reported Past Psychological History: Anxiety, Depression Smoking Status: Current every day smoker Past Alcohol Use History: Rare Past Drug Use History: Cocaine, Heroin, Marijuana, Methamphetamine, Opiates, Prescription Drug Abuse General Exam Limitations: no limitations General appearance: alert, in no apparent distress Head exam: Present: atraumatic, normocephalic, normal inspection Eye exam: Present: normal appearance, PERRL, EOMI. Absent: scleral icterus, conjunctival injection, periorbital swelling ENT exam: Present: normal exam, mucous membranes moist Neck exam: Present: normal inspection. Absent: tenderness, meningismus, lymphadenopathy Respiratory exam: Present: normal lung sounds bilaterally. Absent: respiratory distress, wheezes, rales, rhonchi, stridor Cardiovascular Exam: Present: regular rate, normal rhythm, normal heart sounds. Absent: systolic murmur, diastolic murmur, rubs, gallop, clicks GI/Abdominal exam: Present: soft, normal bowel sounds. Absent: distended, tenderness, guarding, rebound, rigid Extremities exam: Present: normal inspection, full ROM, normal capillary refill. Absent: tenderness, pedal edema, joint swelling, calf tenderness Back exam: Present: normal inspection Neurological exam: Present: alert, oriented X3, CN II-XII intact Psychiatric exam: Present: normal affect, normal mood Skin exam: Present: warm, dry, intact, normal color. Absent: rash Course Vital Signs 04/21/21 01:57 Temperature 99.3 F Pulse Rate 82 Respiratory 18 Rate Blood Pressure 122/77 O2 Sat by Pulse 100 Oximetry - Reevaluation(s) Reevaluation #1: 04/21/21 02:30 Medical record is reviewed Reevaluation #2: 04/21/21 02:30 Patient pain is improved Reevaluation #3: 04/21/21 02:30 Patient informed results and questions answered Medical Decision Making - Medical Decision Making 35 female DF for evaluation of toothache and tooth pain. Patient does admit to caries dental abscess. Patient given pain control antibiotics and can be discharged home Disposition Clinical Impression: Dental caries, Dental abscess Disposition: HOME SELF-CARE Condition: Good Instructions (If sedation given, give patient instructions): Dental Abscess (ED), Toothache (ED) Prescriptions: Penicillin V Potassium [Pen Vee K] 500 mg PO Q6HR #28 tablet Is patient prescribed a controlled substance at d/c from ED?: No Referrals: Tong Ulrich DO [Primary Care Provider] - 1-2 days
== END 2021-04-21 03:00 | disposition home or self-care (01) ==
LOC: EC 01:55
DX: K02.9 Dental caries, unspecified (principal); K04.7 Periapical abscess without sinus; F17.200 Nicotine dependence, unspecified, uncomplicated
CPT/HCPCS: 99282

== ENCOUNTER 2021-04-24 08:42 | Emergency (ER) | payer OTHER ==
[2021-04-24 08:56] VITALS: BP 121/86; PULSE 85; RESP 18; TEMP 98.1
[2021-04-24] MEDS ORDERED: IBUPROFEN 600 MG TAB PO STA (09:11)
--- NOTE | 2021-04-24 09:15 | ED ---
General Adult HPI - General Chief complaint: Dental/Oral Stated complaint: dental pain Time Seen by Provider: 04/24/21 08:58 Source: patient, RN notes reviewed, old records reviewed Mode of arrival: ambulatory Limitations: no limitations - History of Present Illness Initial comments: 35-year-old female presents for evaluation of dental pain. She states that she is currently on penicillin which was prescribed after an earlier in ER visit. She continues to have pain in both the upper and lower right side. She denies injury. She denies fever. Patient states she has an appointment with her primary care physician in 2 days and an appointment with the dentist in approximately 10 days. Patient is taking her antibiotics as prescribed. - Related Data Previous Rx's Medication Instructions Recorded ARIPiprazole [Abilify] 5 mg PO DAILY 30 Days tab 12/13/20 Mirtazapine [Remeron] 15 mg PO HS 30 Days tab 12/13/20 Nicotine 21Mg/24Hr Patch [Habitrol] 1 patch TRANSDERM DAILY 14 Days 12/13/20 patch Penicillin V Potassium [Pen Vee K] 500 mg PO Q6HR #28 tablet 04/21/21 Ibuprofen [Motrin] 600 mg PO Q8HR PRN #24 tab 04/24/21 Allergies Allergy/AdvReac Type Severity Reaction Status Date / Time No Known Allergies Allergy Verified 04/24/21 08:54 Review of Systems ROS Statement: Those systems with pertinent positive or pertinent negative responses have been documented in the HPI. ROS Other: All systems not noted in ROS Statement are negative. Past Medical History Past Medical History: No Reported History History of Any Multi-Drug Resistant Organisms: None Reported Past Surgical History: No Surgical Hx Reported Past Psychological History: Anxiety, Depression Smoking Status: Current every day smoker Past Alcohol Use History: Rare Past Drug Use History: Cocaine, Heroin, Marijuana, Methamphetamine, Opiates, Prescription Drug Abuse General Exam Limitations: no limitations General appearance: alert, in no apparent distress Head exam: Present: atraumatic, normocephalic Eye exam: Present: normal appearance, PERRL ENT exam: Present: other (No facial swelling, poor dentition) Respiratory exam: Absent: respiratory distress Cardiovascular Exam: Present: regular rate, normal rhythm GI/Abdominal exam: Absent: distended Extremities exam: Present: normal inspection Neurological exam: Present: alert, oriented X3, CN II-XII intact. Absent: motor sensory deficit Psychiatric exam: Present: anxious, other. Absent: homicidal ideation, suicidal ideation Skin exam: Present: warm, dry, intact. Absent: cyanosis, diaphoretic Course Vital Signs 04/24/21 08:54 Temperature 98.1 F Pulse Rate 85 Respiratory 18 Rate Blood Pressure 121/86 O2 Sat by Pulse 100 Oximetry Medical Decision Making - Medical Decision Making 35-year-old female presenting for evaluation of dental pain. She has an appointment with her primary care physician and her dentist. Patient is currently on penicillin she will continue this medication. She is prescribed Motrin. Disposition Clinical Impression: Dental caries Disposition: HOME SELF-CARE Condition: Fair Instructions (If sedation given, give patient instructions): Toothache (ED) Prescriptions: Ibuprofen [Motrin] 600 mg PO Q8HR PRN #24 tab PRN Reason: Pain Is patient prescribed a controlled substance at d/c from ED?: No Referrals: Tong Ulrich DO [Primary Care Provider] - 1-2 days Time of Disposition: 09:14
== END 2021-04-24 09:50 | disposition home or self-care (01) ==
LOC: EC 08:42
DX: K02.9 Dental caries, unspecified (principal); F17.200 Nicotine dependence, unspecified, uncomplicated
CPT/HCPCS: 99282

== ENCOUNTER 2021-05-16 23:46 | Emergency (ER) | payer OTHER ==
[2021-05-17] VITALS: BP 146/79; PULSE 92; RESP 18; TEMP 98.1
[2021-05-17 00:35] LABS: Appearance,Urine Cloudy (Clear); Bacteria,Urine Rare /hpf; Bilirubin,Urine Negative (Negative); Blood,Urine Negative (Negative); Color,Urine Yellow; Glucose,Urine (UA) Negative (Negative); Ketones,Urine Trace (Negative); Leukocyte Esterase,Urine Large (Negative); Mucus,Urine Many /hpf; Nitrite,Urine Negative (Negative); PH, Urine 5.5 (5.0-8.0); Protein,Urine 1+ (Negative); RBC,Urine 4 /hpf (0-5); Specific Gravity,Urine 1.035 (1.001-1.035); Squamous Epithelial Cell,Urine 7 /hpf (0-4); WBC,Urine 57 /hpf (0-5)
[2021-05-17 00:36] LABS: Amphetamine Screen,Urine Not Detected (NotDetected); Barbiturate Screen,Urine Not Detected (NotDetected); Benzodiazepines Screen,Urine Not Detected (NotDetected); Cocaine Screen,Urine Detected (NotDetected); Methadone Screen, Urine Not Detected (NotDetected); Opiate Screen,Urine Not Detected (NotDetected); Oxycodone Screen, Urine Not Detected (NotDetected); Phencyclidine Screen,Urine Not Detected (NotDetected); Tricyclic Antidepressant,Urine Not Detected (NotDetected); Urn Cannabinoid Scrn Not Detected (NotDetected)
--- NOTE | 2021-05-17 01:36 | ED ---
Psych HPI - General Chief Complaint: Psychiatric Symptoms Stated Complaint: Poss seizure Time Seen by Provider: 05/17/21 01:25 Source: patient, RN notes reviewed, old records reviewed Mode of arrival: ambulatory Limitations: no limitations - History of Present Illness Initial Comments: This is a 35-year-old female to the emergency department for evaluation she presents today for evaluation of thinking that she has antibiotics and her body. Patient states she doesn't of breath she passed out or how she swallowed and antibiotics in the first place. She is concerned maybe in her chest. She is asking for an x-ray for evaluation of her antibiotics. Patient now currently denies homicidal or suicidal thoughts she has a history of drug or alcohol abuse but does not currently admit to substance abuse MD Complaint: altered mental status, other (Acute psychosis) -: days(s) Associated Psychiatric Symptoms: none History of same: Yes Quality: constant Improves With: none Worsens With: none Context: not taking psychiatric medications, significant life stressor Treatments Prior to Arrival: none - Related Data Previous Rx's Medication Instructions Recorded ARIPiprazole [Abilify] 5 mg PO DAILY 30 Days tab 12/13/20 Mirtazapine [Remeron] 15 mg PO HS 30 Days tab 12/13/20 Nicotine 21Mg/24Hr Patch [Habitrol] 1 patch TRANSDERM DAILY 14 Days 12/13/20 patch Penicillin V Potassium [Pen Vee K] 500 mg PO Q6HR #28 tablet 04/21/21 Ibuprofen [Motrin] 600 mg PO Q8HR PRN #24 tab 04/24/21 Allergies Allergy/AdvReac Type Severity Reaction Status Date / Time No Known Allergies Allergy Verified 05/16/21 23:59 Review of Systems ROS Statement: Those systems with pertinent positive or pertinent negative responses have been documented in the HPI. ROS Other: All systems not noted in ROS Statement are negative. Past Medical History Past Medical History: No Reported History History of Any Multi-Drug Resistant Organisms: None Reported Past Surgical History: No Surgical Hx Reported Past Psychological History: Anxiety, Depression Smoking Status: Current every day smoker Past Alcohol Use History: Rare Past Drug Use History: None Reported, Cocaine, Heroin, Marijuana, Methamphetamin e, Opiates, Prescription Drug Abuse General Exam Limitations: no limitations General appearance: alert, in no apparent distress Head exam: Present: atraumatic, normocephalic, normal inspection Eye exam: Present: normal appearance, PERRL, EOMI. Absent: scleral icterus, conjunctival injection, periorbital swelling ENT exam: Present: normal exam, mucous membranes moist Neck exam: Present: normal inspection. Absent: tenderness, meningismus, lymphadenopathy Respiratory exam: Present: normal lung sounds bilaterally. Absent: respiratory distress, wheezes, rales, rhonchi, stridor Cardiovascular Exam: Present: regular rate, normal rhythm, normal heart sounds. Absent: systolic murmur, diastolic murmur, rubs, gallop, clicks GI/Abdominal exam: Present: soft, normal bowel sounds. Absent: distended, tenderness, guarding, rebound, rigid Extremities exam: Present: normal inspection, full ROM, normal capillary refill. Absent: tenderness, pedal edema, joint swelling, calf tenderness Back exam: Present: normal inspection Neurological exam: Present: alert, oriented X3, CN II-XII intact Psychiatric exam: Present: normal affect, normal mood Skin exam: Present: warm, dry, intact, normal color. Absent: rash Course Vital Signs 05/16/21 23:56 Temperature 98.1 F Pulse Rate 92 Respiratory 18 Rate Blood Pressure 146/79 O2 Sat by Pulse 100 Oximetry - Reevaluation(s) Reevaluation #1: 05/17/21 03:24 Record is reviewed Reevaluation #2: 05/17/21 03:24 Patient continues to deny homicidal or suicidal thoughts Reevaluation #3: 05/17/21 03:24 Went to do chest x-ray and patient states that the mental but is no travel to her head Reevaluation #4: 05/17/21 03:25 reevaluated patient and she had eloped Medical Decision Making - Medical Decision Making 35 female to the emergency department for evaluation of some acute psychosis believes she swallowed a metal nanobot. Patient eloped prior to finishing evaluation but not homicidal or suicidal prior to leaving - Lab Data Lab Results 05/17/21 05/17/21 Range/Units 00:00 00:00 Urine Color Yellow Urine Appearance Cloudy H (Clear) Urine pH 5.5 (5.0-8.0) Ur Specific Grady 1.035 (1.001-1.035) Urine Protein 1+ H (Negative) Urine Glucose (UA) Negative (Negative) Urine Ketones Trace H (Negative) Urine Blood Negative (Negative) Urine Nitrite Negative (Negative) Urine Bilirubin Negative (Negative) Urine Urobilinogen 4.0 (<2.0) mg/dL Ur Leukocyte Esterase Large H (Negative) Urine RBC 4 (0-5) /hpf Urine WBC 57 H (0-5) /hpf Ur Squamous Epith Cells 7 H (0-4) /hpf Urine Bacteria Rare H (None) /hpf Urine Mucus Many H (None) /hpf Urine HCG, Qual Not Detected (Not Detectd) Urine Opiates Screen Not Detected (NotDetected) Ur Oxycodone Screen Not Detected (NotDetected) Urine Methadone Screen Not Detected (NotDetected) Ur Propoxyphene Screen Not Detected (NotDetected) Ur Barbiturates Screen Not Detected (NotDetected) U Tricyclic Antidepress Not Detected (NotDetected) Ur Phencyclidine Scrn Not Detected (NotDetected) Ur Amphetamines Screen Not Detected (NotDetected) U Methamphetamines Scrn Not Detected (NotDetected) U Benzodiazepines Scrn Not Detected (NotDetected) Urine Cocaine Screen Detected H (NotDetected) U Marijuana (THC) Screen Not Detected (NotDetected) Disposition Clinical Impression: Unspecified psychosis Disposition: Left Against Medical Advice Condition: Fair Instructions (If sedation given, give patient instructions): Brief Psychotic Disorder (ED) Is patient prescribed a controlled substance at d/c from ED?: No Referrals: Tong Ulrich DO [Primary Care Provider] - 1-2 days
== END 2021-05-17 03:15 | disposition left against medical advice (07) ==
LOC: EC 23:46
DX: F29 Unspecified psychosis not due to a substance or known physiological condition (principal); F17.200 Nicotine dependence, unspecified, uncomplicated; Z53.29 Procedure and treatment not carried out because of patient's decision for other reasons
CPT/HCPCS: 80306; 81001; 81025; 87086; 99284

== ENCOUNTER 2021-05-30 10:38 | Inpatient (IN) | payer MEDICAID, OTHER ==
--- NOTE | 2021-05-30 16:05 | ED ---
Psych HPI - General Source: patient Mode of arrival: ambulatory <Olivia Love - Last Filed: 05/30/21 17:34> <Cuco Paige - Last Filed: 05/30/21 18:34> - General Chief Complaint: Psychiatric Symptoms Stated Complaint: pt refused to state complaint Time Seen by Provider: 05/30/21 14:46 - History of Present Illness Initial Comments: This 35-year-old female past medical history of polysubstance abuse presents to the emergency department for psychiatric evaluation. Patient states she swallowed "Nanabot" that her cousin gave her and is now in her brain. Patient states her cousin uploaded it to computer and she states he is getting her medications through her brain. Patient was diagnosed with psychosis at one point but was not diagnosed with a specific psychiatric disorder. Patient denies any hallucinations, SI, HI. Patient denies any chest pain, shortness of breath, abdominal pain, headache, nausea, vomiting, change in bowel or bladder, change in appetite. (Olivia Love) - Related Data Home Medications Medication Instructions Recorded Confirmed ARIPiprazole [Abilify] 10 mg PO DAILY 05/30/21 05/30/21 Previous Rx's Medication Instructions Recorded Mirtazapine [Remeron] 15 mg PO HS 30 Days tab 12/13/20 Allergies Allergy/AdvReac Type Severity Reaction Status Date / Time No Known Allergies Allergy Verified 05/30/21 11:12 Review of Systems ROS Other: All systems not noted in ROS Statement are negative. <Olivia Love - Last Filed: 05/30/21 17:34> ROS Other: All systems not noted in ROS Statement are negative. <Cuco Paige - Last Filed: 05/30/21 18:34> ROS Statement: Those systems with pertinent positive or pertinent negative responses have been documented in the HPI. Past Medical History Past Medical History: No Reported History History of Any Multi-Drug Resistant Organisms: None Reported Past Surgical History: No Surgical Hx Reported Past Psychological History: Anxiety, Depression Smoking Status: Current every day smoker Past Alcohol Use History: Rare Past Drug Use History: None Reported, Cocaine, Heroin, Marijuana, Methamphetamine, Opiates, Prescription Drug Abuse <Olivia Love - Last Filed: 05/30/21 17:34> General Exam Limitations: no limitations General appearance: alert, in no apparent distress Head exam: Present: atraumatic, normocephalic, normal inspection Eye exam: Present: normal appearance, EOMI ENT exam: Present: normal exam, mucous membranes moist Respiratory exam: Present: normal lung sounds bilaterally. Absent: respiratory distress, wheezes, rales, rhonchi, stridor Cardiovascular Exam: Present: regular rate, normal rhythm, normal heart sounds. Absent: systolic murmur, diastolic murmur, rubs, gallop, clicks GI/Abdominal exam: Present: soft, normal bowel sounds. Absent: distended, tenderness, guarding, rebound, rigid Extremities exam: Present: full ROM Back exam: Present: full ROM. Absent: tenderness, CVA tenderness (R), CVA tenderness (L) Neurological exam: Present: alert, oriented X3, CN II-XII intact, other (Finger to nose, rapid alternating movements, 6 cardinal signs of direction all intact.) Psychiatric exam: Present: normal affect, normal mood. Absent: anxious, flat affect, homicidal ideation, suicidal ideation Skin exam: Present: warm, dry, intact, normal color. Absent: rash <Olivia Love - Last Filed: 05/30/21 17:34> Course <Cuco Paige - Last Filed: 05/30/21 18:34> Vital Signs 05/30/21 11:12 Temperature 97.6 F Pulse Rate 84 Respiratory 20 Rate Blood Pressure 123/62 O2 Sat by Pulse 100 Oximetry - Reevaluation(s) Reevaluation #1: 05/30/21 18:32 PA supervision. I did personally do a history of physical and the patient she did present with complaints of nanobots in her brain. She is been there for a long time she states. She is requesting neurology for some type of a scan to find the nanobots. She states that they were placed here by her eating food. She denies any headaches dizziness blurry vision nausea vomiting or other symptoms she is adamant that she has nanobots her brain. Other than his physical exam is unremarkable. I did review the charting as well as the petition patient will be clinically started by me. Patient will be admitted for inpatient evaluation and treatment (Cuco Paige) Medical Decision Making <Olivia Love - Last Filed: 05/30/21 17:34> - Medical Decision Making This 35-year-old female says emergency department to be evaluated by EPS. (Olivia Love) Disposition <Olivia Love - Last Filed: 05/30/21 17:34> <Cuco Paige - Last Filed: 05/30/21 18:34> Clinical Impression: Acute psychosis Disposition: TRANSFER TO PSYCH HOSP/UNIT Condition: Stable Referrals: Tong Ulrich DO [Primary Care Provider] - 1-2 days
[2021-05-30] MEDS ORDERED: diphenhydrAMINE 50 MG/ML 1 ML VIAL IVP STA (17:58)
[2021-05-30] MEDS ORDERED: HYDROmorphone 1 MG/ML 1 ML SYRINGE IVP STA (17:58)
[2021-05-30] MEDS ORDERED: MAGNESIUM HYDROXIDE 2,400 MG/10 ML CUP PO PRN (20:20)
[2021-05-30] MEDS ORDERED: MAG HYDROX/AL HYDROX/SIMETH 30 ML CUP PO PRN (20:20)
[2021-05-30] MEDS ORDERED: HALOPERIDOL LACTATE 5 MG/ML 1 ML VIAL IM PRN (20:20)
[2021-05-30] MEDS ORDERED: LORazepam 2 MG/ML INJ IM PRN (20:22)
[2021-05-30] MEDS ORDERED: haloperidoL 5 MG TAB PO PRN (20:22)
[2021-05-31] MEDS: MIRTAZAPINE 15 MG TAB PO SCH ×2 (02:54→20:54)
[2021-05-31 07:37] LABS: Basophils % (A) 1 %; Eosinophils # (A) 0.1 k/uL (0-0.7); Eosinophils % (A) 3 %; HCT 37.7 % (34.0-46.0); HGB 12.7 gm/dL (11.4-16.0); Lymphocytes # (A) 1.3 k/uL (1.0-4.8); Lymphocytes % (A) 29 %; MCH 31.2 pg (25.0-35.0); MCHC 33.7 g/dL (31.0-37.0); MCV 92.6 fL (80.0-100.0); Mean Platelet Volume 7.6; Monocytes # (A) 0.3 k/uL (0-1.0); Monocytes % (A) 6 %; Neutrophils # (A) 2.7 k/uL (1.3-7.7); Neutrophils % (A) 61 %; Platelet Count 175 k/uL (150-450); RBC 4.07 m/uL (3.80-5.40); RDW 12.3 % (11.5-15.5); WBC 4.4 k/uL (3.8-10.6)
[2021-05-31 07:52] LABS: ALT 10 U/L (4-34); AST 17 U/L (14-36); African American GFR (CKD) >90 (>60 ml/min/1.73 sqM); Alkaline Phosphatase 47 U/L (38-126); Anion Gap 6 mmol/L; Blood Urea Nitrogen 10 mg/dL (7-17); Calcium 9.1 mg/dL (8.4-10.2); Carbon Dioxide 24 mmol/L (22-30); Chloride 110 mmol/L (98-107); Glucose 92 mg/dL (74-99); Non-African American GFR(CKD) >90 (>60 ml/min/1.73 sqM); Sodium 140 mmol/L (137-145); Total Bilirubin 0.6 mg/dL (0.2-1.3); Total Protein 6.6 g/dL (6.3-8.2)
[2021-05-31] MEDS: NICOTINE 14MG/24HR PATCH TRANSDERM SCH (08:15)
[2021-05-31] MEDS: ACETAMINOPHEN TAB 325 MG TAB PO PRN ×2 (08:16→15:57)
[2021-05-31] MEDS: LORazepam 1 MG TAB PO PRN ×2 (08:16→15:58)
[2021-05-31] MEDS ORDERED: ARIPiprazole 10 MG TAB PO SCH (09:00)
--- NOTE | 2021-05-31 11:28 | P.HP ---
Psychiatric H&P - . H&P Date: 05/31/21 History & Physical: Allergies Allergy/AdvReac Type Severity Reaction Status Date / Time No Known Allergies Allergy Verified 05/30/21 11:12 Vital Signs Temp 97.6 F 05/31/21 08:26 Pulse 67 05/31/21 08:26 Resp 20 05/31/21 08:26 BP 102/59 05/31/21 08:26 Pulse Ox 100 05/31/21 08:26 Intake & Output 05/30/21 05/31/21 05/31/21 18:59 06:59 18:59 Weight 54.431 kg Laboratory Last Values WBC 4.4 k/uL (3.8-10.6) 05/31/21 07: RBC 4.07 m/uL (3.80-5.40) 05/31/21 07:22 Hgb 12.7 gm/dL (11.4-16.0) 05/31/21 07: Hct 37.7 % (34.0-46.0) 05/31/21 07: MCV 92.6 fL (80.0-100.0) 05/31/21 07: MCH 31.2 pg (25.0-35.0) 05/31/21 07: MCHC 33.7 g/dL (31.0-37.0) 05/31/21 07: RDW 12.3 % (11.5-15.5) 05/31/21 07: Plt Count 175 k/uL (150-450) 05/31/21 07: MPV 7.6 05/31/21 07: Neutrophils % 61 % 05/31/21 07:22 Lymphocytes % 29 % 05/31/21 07:22 Monocytes % 6 % 05/31/21 07:22 Eosinophils % 3 % 05/31/21 07: Basophils % 1 % 05/31/21 07: Neutrophils # 2.7 k/uL (1.3-7.7) 05/31/21 07: Lymphocytes # 1.3 k/uL (1.0-4.8) 05/31/21 07: Monocytes # 0.3 k/uL (0-1.0) 05/31/21 07: Eosinophils # 0.1 k/uL (0-0.7) 05/31/21 07: Basophils # 0.0 k/uL (0-0.2) 05/31/21 07:22 Sodium 140 mmol/L (137-145) 05/31/21 07:22 Potassium 4.0 mmol/L (3.5-5.1) 05/31/21 07:22 Chloride 110 mmol/L (98-107) H 05/31/21 07:22 Carbon Dioxide 24 mmol/L (22-30) 05/31/21 07:22 Anion Gap 6 mmol/L 05/31/21 07:22 BUN 10 mg/dL (7-17) 05/31/21 07:22 Creatinine 0.73 mg/dL (0.52-1.04) 05/31/21 07:22 Est GFR (CKD-EPI)AfAm >90 (>60 ml/min/1.73 sqM) 05/31/21 07:22 Est GFR (CKD-EPI)NonAf >90 (>60 ml/min/1.73 sqM) 05/31/21 07: Glucose 92 mg/dL (74-99) 05/31/21 07:[address] Glu mg/dL 106 05/31/21 07:22 Hemoglobin A1c 5.3 % (0.0-6.0) 05/31/21 07: Calcium 9.1 mg/dL (8.4-10.2) 05/31/21 07:22 Total Bilirubin 0.6 mg/dL (0.2-1.3) 05/31/21 07: AST 17 U/L (14-36) 05/31/21 07:22 ALT 10 U/L (4-34) 05/31/21 07:22 Alkaline Phosphatase 47 U/L (38-126) 05/31/21 07:22 Total Protein 6.6 g/dL (6.3-8.2) 05/31/21 07:22 Albumin 4.0 g/dL (3.5-5.0) 05/31/21 07:22 TSH 1.150 mIU/L (0.465-4.680) 05/31/21 07:22 Coronavirus (PCR) Not Detected (Not Detectd) 05/30/21 18:26 05/31/21 11:27 IDENTIFYING DATA: Patient is a single, unemployed, 35-year-old female with significant history of cocaine use disorder presented to the emergency department endorsing bizarre and paranoid delusions. HPI: Patient presented to the hospital the patient presented to the emergency Department on 05/30/2021 with a chief complaint of "I need an antibiotic and now it is affecting my brain." As per EPS report, the patient was demanding to see neurology and obtain an MRI. The patient reports that her cousin is a neuroscientist at [facility] and was researching antibiotics and then a technology. She reports that she swallowed a pie that contained an antibiotic and now expresses concerns that the man about his causing numerous problems for her. She reports concerns of weight loss and difficulty with sleep. Upon evaluation on the psychiatric unit, the patient continues to maintain that she wants a test done to prevent there is an antibiotic in her brain. The patient wants known to the provider that "I know it sounds crazy but this is new and unheard of and I need a scan." When asked what the effects that she is noticing because of an antibiotic, the patient reports that she feels like she has been losing weight and has had difficulty with sleep. She is not reporting any suicidal or homicidal ideation, intention, and/or plan. She is not reporting any auditory or visual hallucinations. She is reporting significant paranoia. The patient does endorse significant substance abuse. She states that she has used cocaine this past week and reports that she uses it at least weekly. She however denies any marijuana use, alcohol use, or other illicit drug use. She states that she has had a previous history of heroin use but states it has been at least 5 years since she last used. She smokes half a pack per day. PAST PSYCHIATRIC HISTORY: Patient states that she has been previously diagnosed with psychosis and depression. Her last admission, discharged on a regimen of Abilify and Remeron. Was last hospitalized on our psychiatric unit in December 2020 and has had one prior hospitalization before then. Patient denies any psychiatric outpatient follow-up. She did not follow-up with her outpatient appointments when she was last discharged. She reports a prior attempt at suicide by overdose on heroin back in 2016. PMH: Past Medical History: No Reported History History of Any Multi-Drug Resistant Organisms: None Reported Past Surgical History: No Surgical Hx Reported Past Psychological History: Anxiety, Depression Smoking Status: Current every day smoker Past Alcohol Use History: Rare Past Drug Use History: None Reported, Cocaine, Heroin, Marijuana, Methamphetamine, Opiates, Prescription Drug Abuse ALLERGIES: NO KNOWN DRUG ALLERGIES CHEMICAL DEPENDENCY HISTORY: as per HPI FAMILY PSYCHIATRIC/SUBSTANCE USE HISTORY: Reports that her father had depression. No reported suicides. SOCIAL HISTORY: Patient was born and raised in [place], [place]. She is single, never , but has 2 children ages 12 and 2 years old. She currently lives with her boyfriend who is the father of her 2 year-old daughter. She attended some college. She does report a history of staying in a holding cell however denies any actual incarceration. She reports that she is not on probation or parole. MENTAL STATUS EXAM: General Appearance: Patient appears to be stated age is alert, directable, and attempts to cooperate. Patient appears to have poor hygiene and grooming. Thin and frail build. Behavior: Patient is seated without any agitated behavior. Eye contact is appropriate. Speech: Patient's speech is fluent and nonpressured. Mood/Affect: Patient reports their mood is anxious, affect is congruent and nervous. Suicidality/Homicidality: Patient denies having any homicidal ideation intent or plan. Denies any suicidal ideations intent or plan Perceptions: Patient denies any visual hallucinations and denies any auditory hallucinations Though content/process: The patient endorses bizarre and paranoid delusional thought content. Thought process is fixated on having her brain scanned. Memory and concentration: AOX3, grossly intact for the purposes of this session. Can spell "WORLD" backwards Judgment and insight: Poor STRENGTHS/WEAKNESSES: Strength is that the patient is willing to take medications and appears to have stable housing. Weakness is the patient engages in heavy substance abuse. INTELLECT: average IMPRESSIONS: Schizoaffective Disorder, depressed type -Working diagnosis of schizoaffective disorder as a patient does have significant history of depression as well as psychotic symptoms. The patient did endorse significant psychotic symptoms way back in December indicating a timeline of at least around 6 months or more. Cocaine use disorder Opioid use disorder, in sustained remission Nicotine dependence PLAN: -Patient is admitted under voluntary status to [facility] for stabilization of psychiatric symptoms and safety. Patient signed adult voluntary form and medication consent and is placed in patient's chart. -Medications : We will discontinue Abilify at this time. We will start the patient on Risperdal 1 mg by mouth twice a day for psychosis. We will continue Remeron 15 mg by mouth at bedtime for appetite stimulation/depression/insomnia. -Ativan and Haldol PRN for agitation/aggression -Patient was counselled on substance abuse and desired to cut back on use -Patient was informed of the risks, benefits and side effects of the medication and patient verbally consented to taking the medications. Patient signed med consent form and was placed in chart. -Internal Medicine consult to perform medical evaluation and physical. -NRT - nicotine patch -SW on board for discharge planning. Encourage patient to participate in groups to work on coping skills. 05/31/21 11:28
--- NOTE | 2021-05-31 13:28 | P.MDCNMH ---
History of Present Illness H&P Date: 05/31/21 Chief Complaint: Psychosis Patient is a 35-year-old female with a known history of polysubstance use and daily smoking was brought to the hospital for psychiatric evaluation. Patient states that she spattered Nanobot that her cousin gave her and now it is in her brain and is thinking her she is getting her medications through her brain. Otherwise patient denied any complaints of headache. No nausea vomiting or abdominal pain or diarrhea. Denied any dysuria or hematuria. No neck stiffness. No cough or sputum production. No chest pain or shortness breath. Denies any blurry vision. Patient does not take any psychiatric medications at home. Lab data showed WBC 4.4 hemoglobin 12.7 MCV 92.6 and platelets 175 sodium 140 potassium 4.0 chloride 110 bicarb is 24 BUN 10 and creatinine 0.73 A1c 5.3 AST 17 ALT 16 alk phos 47 and TSH level is 1.1509 his coronavirus PCR not detected. Urine drug screen is pending. Review of Systems Constitutional: Patient denies any fever or chills . No generalized weakness or weight loss. Abdomen: Patient denied nausea vomiting and diarrhea and abdominal pain. Cardiovascular: Patient denies any chest pain or short of breath no palpitations. Respiratory: patient denied any cough is from production. No shortness of breath Neurologic: Patient denied any numbness or tingling headache. Musculoskeletal: Patient denies any complaints of joint swelling or deformity. Skin: Negative Psychiatric: Anxious Endocrine: No heat or cold intolerance. No recent weight gain. Genitourinary: No dysuria or hematuria. All other 14 point ROS negative except the above Past Medical History Past Medical History: No Reported History History of Any Multi-Drug Resistant Organisms: None Reported Past Surgical History: No Surgical Hx Reported Smoking Status: Current every day smoker Medications and Allergies Home Medications Medication Instructions Recorded Confirmed Type Mirtazapine [Remeron] 15 mg PO HS 30 Days tab 12/13/20 05/30/21 Rx ARIPiprazole [Abilify] 10 mg PO DAILY 05/30/21 05/30/21 History Allergies Allergy/AdvReac Type Severity Reaction Status Date / Time No Known Allergies Allergy Verified 05/30/21 11:12 Physical Exam Vitals: Vital Signs Temp Pulse Pulse Resp BP BP Pulse Ox 05/31/21 08:26 97.6 F 67 20 102/59 100 05/30/21 23:51 97.9 F 61 14 104/64 100 05/30/21 11:12 97.6 F 84 20 123/62 100 PHYSICAL EXAMINATION: Patient is lying in the bed comfortably, no acute distress, awake alert and oriented.. HEENT: Normocephalic. Neck is supple. Pupils reactive. Nostrils clear. Oral cavity is moist. Neck reveals no JVD, carotid bruits, or thyromegaly. CHEST EXAMINATION: Trachea is central. Symmetrical expansion. Lung richard clear to auscultation and percussion. CARDIAC: Normal S1, S2 with no gallops. No murmurs ABDOMEN: Soft. Bowel sounds normal. No organomegaly. No abdominal bruits. Extremities: reveal no edema. No clubbing or cyanosis Neurologically awake, alert, oriented x3 with well-coordinated movements. No focal deficits noted Skin: No rash or skin lesions. Psychiatric: Coperative. Nonsuicidal Musculoskeletal: No joint swelling or deformity. Normal range of motion. Cranial Nerve Examination - Cranial Nerves Cranial Nerve I- Olfactory: Intact Cranial Nerve II- Optic: Intact Cranial Nerve III- Oculomotor: Intact Cranial Nerve IV- Trochlear: Intact Cranial Nerve V- Trigeminal: Intact Cranial Nerve - Abducens: Intact Cranial Nerve VII- Facial: Intact Cranial Nerve VIII- Auditory: Intact Cranial Nerve IX- Glossopharyngeal: Intact Cranial Nerve X- Vagus: Intact Cranial Nerve XI- Accessory: Intact Cranial Nerve XII- Hypoglossal: Intact Results CBC & Chem 7: 05/31/21 07:22 05/31/21 07:22 Labs: Abnormal Lab Results - Last 24 Hours (Table) 05/31/21 Range/Units 07:22 Chloride 110 H (98-107) mmol/L Assessment and Plan Assessment: Acute psychosis/schizoaffective disorder, depressive type With cocaine and polysubstance use opiates. Ongoing nicotine addiction DVT prophylaxis early ambulation Plan: Patient is being continued on Remeron and Haldol as needed for agitation. Con tinue with current psychiatric management and plan. Will continue to follow and further recommendations based on clinical course. Smoking cessation has been counseled. Follow-up UDS.
[2021-05-31 14:42] LABS: Chol/HDL Ratio 3.34 Ratio; LDL Cholesterol,Calculated 78.3 mg/dL (0.0-131.0); VLDL Calculation 10.68 mg/dL (5.00-40.00)
[2021-05-31] MEDS: risperiDONE 1 MG TAB PO SCH (20:54)
[2021-06-01] MEDS: risperiDONE 1 MG TAB PO SCH ×2 (08:09→20:11)
[2021-06-01] MEDS: NICOTINE 14MG/24HR PATCH TRANSDERM SCH (08:10)
--- NOTE | 2021-06-01 11:09 | P.PN ---
Progress Note - Text Progress Note Date: 06/01/21 Interval History: Patient was seen resting in bed and was directable and agreeable to speak with the insurance underwriter in her room. Currently the patient is reporting that she is feeling well. She reports that she was able to sleep well last night and denies any issues regarding her appetite. Patient continues to report that she feels like there is a nanobot in her brain however denies any symptoms that differ from feeling normal. She was informed that neurology does not recommend the scan. She is agreeable at this time. The patient was counseled in length at cocaine may contribute to her symptoms and acknowledges that she needs to cut down however is unlikely to stop. She does not report any suicidal or homicidal ideation, intention, and/or plan. She denies any auditory or visual hallucinations. She reports no paranoia. Mental Status Exam: General Appearance: Patient appears to be stated age is alert, directable, and cooperative. Behavior: Patient is calmly seated without any agitated behavior. Speech: Patient's speech is fluent and nonpressured. Mood/Affect: Mood is improving mildly, affect is congruent and constricted. Suicidality/Homicidality: Patient denies having any suicidal or homicidal ideation intent or plan. Perceptions: Patient denies any visual hallucinations and denies any auditory hallucinations Though content/process: Patient believes that there is an nanobot in her head. Memory and concentration: AOX3, grossly intact for the purposes of this session Judgment and insight: Improving mildly Vital Signs Temp 98.2 F 06/01/21 08:08 Pulse 111 H 06/01/21 08:08 Resp 18 06/01/21 08:08 BP 98/66 06/01/21 08:08 Pulse Ox 97 06/01/21 08:08 Laboratory Results - Last 24 Hours 05/31/21 05/31/21 07:22 07:[address] Glu mg/dL 106 Hemoglobin A1c 5.3 Triglycerides 53.40 Cholesterol 127.00 LDL Cholesterol, Calc 78.3 VLDL Cholesterol, Calc 10.68 HDL Cholesterol 38.00 L Cholesterol/HDL Ratio 3.34 Assessment Schizoaffective Disorder, depressed type Cocaine use disorder Opioid use disorder, in sustained remission Nicotine dependence Plan: -Patient continues to meet criteria for inpatient psychiatric admission for symptom stabilization and safety. Patient has signed adult voluntary form and medication consent and was placed in patient's chart. -Medications: Increase Risperdal to 2 mg by mouth twice a day for mood stabilization/psychosis Continue Remeron 15 mg by mouth at bedtime for appetite stimulation/depression/insomnia -When necessary Ativan and Haldol for agitation/aggression. -NRT - nicotine patch -SW on board for discharge planning. Encouraged the patient to participate in milieu.
[2021-06-01] MEDS: LORazepam 1 MG TAB PO PRN (15:42)
[2021-06-01] MEDS: MIRTAZAPINE 15 MG TAB PO SCH (20:11)
[2021-06-02] MEDS: risperiDONE 1 MG TAB PO SCH ×2 (08:16→20:42)
[2021-06-02] MEDS: NICOTINE 14MG/24HR PATCH TRANSDERM SCH (08:17)
[2021-06-02] MEDS: ACETAMINOPHEN TAB 325 MG TAB PO PRN ×3 (08:18→20:42)
[2021-06-02] MEDS: LORazepam 1 MG TAB PO PRN ×2 (08:18→20:43)
[2021-06-02] MEDS: MIRTAZAPINE 15 MG TAB PO SCH (20:42)
[2021-06-03] MEDS: NICOTINE 14MG/24HR PATCH TRANSDERM SCH (07:38)
[2021-06-03] MEDS: risperiDONE 1 MG TAB PO SCH ×2 (08:15→20:11)
[2021-06-03] MEDS: LORazepam 1 MG TAB PO PRN (08:16)
--- NOTE | 2021-06-03 12:56 | P.PN ---
Progress Note - Text Progress Note Date: 06/03/21 Interval History: Patient was seen in her room and was directable and agreeable to speak with food writer.Patient states that she has been previously diagnosed with psychosis and depression. Her last admission, discharged on a regimen of Abilify and Remeron. Was last hospitalized on our psychiatric unit in December 2020 and has had one prior hospitalization before then. Patient denies any psychiatric outpatient follow-up. She did not follow-up with her outpatient appointments when she was last discharged. She reports a prior attempt at suicide by overdose on heroin back in 2016. Patient denies any side effects from the medications and has been compliant with meds. Mental Status Exam: General Appearance: Patient appears to be stated age is alert, laying in the bed and uncooperative. Behavior: Patient is not wanting to talk to examiner. Speech: Patient's speech is hardly productive. Mood/Affect: Mood is improving mildly, affect is congruent and constricted. Suicidality/Homicidality: Patient denies having any suicidal or homicidal ideation intent or plan. Perceptions: Patient denies any visual hallucinations and denies any auditory hallucinations Though content/process: Patient is guarded and speaks in a low monotonous voice. Memory and concentration: Memory and concentration could not be assessed Judgment and insight: Improving mildly Assessment Patient continues to show symptoms of psychosis and it needs medication and hospitalization. Plan: -Patient continues to meet criteria for inpatient psychiatric admission for symptom stabilization and safety. -Medications: Continue medication as before -When necessary Ativan and Haldol for agitation/aggression. -SW on board for discharge planning. Encouraged the patient to participate in milieu.
[2021-06-03] MEDS: ACETAMINOPHEN TAB 325 MG TAB PO PRN ×2 (14:38→20:10)
[2021-06-03] MEDS: MIRTAZAPINE 15 MG TAB PO SCH (20:11)
[2021-06-04] MEDS: ACETAMINOPHEN TAB 325 MG TAB PO PRN ×3 (08:01→20:08)
[2021-06-04] MEDS: risperiDONE 1 MG TAB PO SCH ×2 (08:02→20:07)
[2021-06-04] MEDS: NICOTINE 14MG/24HR PATCH TRANSDERM SCH (08:03)
--- NOTE | 2021-06-04 11:52 | P.PN ---
Progress Note - Text Progress Note Date: 06/04/21 Interval History: Patient was seen in her room and was agreeable to speak with filing writer. Patient is a single, unemployed, 35-year-old female with significant history of cocaine use disorder presented to the emergency department endorsing bizarre and paranoid delusions.. Patient denies any side effects from the medications and has been compliant with meds. Mental Status Exam: General Appearance: Patient appears to be stated age is alert, and cooperative. Behavior: Patient is without any agitated behavior. Speech: Patient's speech is not fluent and nonpressured. Mood/Affect: Mood is improving mildly, affect is congruent and constricted. Suicidality/Homicidality: Patient denies having any suicidal or homicidal ideation intent or plan. Perceptions: Patient denies any visual hallucinations and denies any auditory hallucinations Though content/process: Patient continues to be delusional. Memory and concentration: She is not able to concentrate on task and memory could not be assessed. Judgment and insight: Improving mildly Assessment This patient continues to be delusional and has been showing symptoms of psychosis Plan: -Patient continues to meet criteria for inpatient psychiatric admission for symptom stabilization and safety. -Medications: Continue medications as before -When necessary Ativan and Haldol for agitation/aggression. -SW on board for discharge planning. Encouraged the patient to participate in milieu.
[2021-06-04] MEDS: MIRTAZAPINE 15 MG TAB PO SCH (20:07)
[2021-06-05 08:24] VITALS: RESP 20
[2021-06-05 08:26] VITALS: BP 113/59; PULSE 86; TEMP 97.4
[2021-06-05] MEDS: ACETAMINOPHEN TAB 325 MG TAB PO PRN (08:27)
[2021-06-05] MEDS: NICOTINE 14MG/24HR PATCH TRANSDERM SCH (08:28)
[2021-06-05] MEDS: risperiDONE 1 MG TAB PO SCH (08:28)
[2021-06-05] MEDS: LORazepam 1 MG TAB PO PRN (08:28)
--- NOTE | 2021-06-05 12:19 | P.DS ---
Providers Date of admission: 05/30/21 19:48 discharge summary She was seen today for review of her progress. She was admitted presenting with bizzare and paranoid delusions. She was seen by me on and by Dr David Walters on the weekend. She was discussed at team round. She denied any craving for substances. but did not talk freely about her need for drug rehabilitation. Complaince with her prescribed medication was the major factor for her psychotic relapse . 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 Course in Hospital; She was initiallly seclusive and was guarded but would not further elaborate on the family issue. She dismissed the adverse milieu at home She was agreeable to be restarted on Rx. Course of hospital stay: No CV and neurological complications from cocaine abuse . The unit staff reported that she improved steadily over the stay with no frequent use of prn for her agitation. She did not exhibit EPS extra-pyramidal motor side effects of dystonia , akathisia. Affect has improved moderately : less guarded.She was seen on May prior to discharge. She was more receptive to be back to her family provided she provided reassurance that she would continue on her medication 1. Remeron 15 mg po qhs 2. Risperidol 2 mg po bid Discharge diagnosis and follow up She was given Rx x 30 days. She would resume her behavioral health follow up in the community. Home milieu may have to be monitored in future if she relasped. Drug Rehabilitation and counseling would have to emphasized. 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 differential ; schizoaffective disorder Attending physician: Royal Anderson MD Consults: 05/30/21 20:20 Consult Physician Routine Consulting Provider: Figueroa Stapleton Consult Reason/Comments: H&P and medical Do you want consulting provider notified?: Yes Primary care physician: Tong Ulrich Patient Condition at Discharge: Stable Plan - Discharge Summary Discharge Rx Participant: No New Discharge Prescriptions: New Nicotine 14Mg/24Hr Patch [Habitrol] 1 patch TRANSDERM DAILY 14 Days #14 patch risperiDONE [RisperDAL] 2 mg PO BID 30 Days tab Continue Mirtazapine [Remeron] 15 mg PO HS 30 Days tab Discontinued ARIPiprazole [Abilify] 10 mg PO DAILY Discharge Medication List Mirtazapine [Remeron] 15 mg PO HS 30 Days tab 06/05/21 [Rx] Nicotine 14Mg/24Hr Patch [Habitrol] 1 patch TRANSDERM DAILY 14 Days #14 patch 06/05/21 [Rx] risperiDONE [RisperDAL] 2 mg PO BID 30 Days tab 06/05/21 [Rx] Follow up Appointment(s)/Referral(s): [facility] [Outside] - 06/06/21 9:00 am (With Corine ) Tong Ulrich DO [Primary Care Provider] - 1-2 days Activity/Diet/Wound Care/Special Instructions: Activity and diet as tolerated. Avoid the use of street drugs and alcohol. Take all medications as prescribed. When you are in need of refills on your medications please contact your medical provider and/or outpatient psychiatrist to have this done. Please go to scheduled outpatient appointment for aftercare treatment. If symptoms return or become worse, call the crisis line at and/or go to the nearest emergency room for evaluation Discharge Disposition: HOME SELF-CARE
--- NOTE | 2021-06-05 14:56 | P.PN ---
Subjective Progress Note Date: 06/02/21 Jun 02 2021 Patient was seen on Jun 02 2021 for progress review. She was somewhat withdrawn and did not elaborate much on her admission circumstances. She did not want to identify high risk situations for h er cocaine use. The cocaine use was revealed at [facility] and contributed towards her relapse. She talked briefly about her maternal role and her tenuos relationship Mental status; Cooperative, fully lucid oriented. Poverty of content of speech, affect; Constricted in range blunted. thought process; No loosening of associations. No suicidal or homicidal ideation. Cog;oriented, marginal insight Diagnosis COcaine psychosis, protracted withdrawal : mood symptoms Atypical depressive disorder Management : Continue to meet inpatient admission. follow through Rx regiment over the weekend Discuss Discharge plan on Saturday Explore familial relatiionship issue Objective - Vital Signs Vital signs: Vital Signs Temp 97.4 F L 06/05/21 08:22 Pulse 86 06/05/21 08:22 Resp 20 06/05/21 08:22 BP 113/59 06/05/21 08:22 Pulse Ox 98 06/04/21 08:09 Intake & Output 06/04/21 06/05/21 06/05/21 18:59 06:59 18:59 Weight 53.2 kg 53.2 kg - Labs CBC & Chem 7: 05/31/21 07:22 05/31/21 07:22
== END 2021-06-05 13:04 | disposition home or self-care (01) | DRG 897 ==
LOC: EC 10:38 → 3MHU 19:48
PROVIDERS: ADMIT Psychiatry & Neurology Psychiatry; ATTEND Psychiatry & Neurology Psychiatry
DX: F14.159 Cocaine abuse with cocaine-induced psychotic disorder, unspecified (principal); F25.1 Schizoaffective disorder, depressive type; F11.11 Opioid abuse, in remission; Z20.822 Contact with and (suspected) exposure to COVID-19; F12.11 Cannabis abuse, in remission; F41.9 Anxiety disorder, unspecified; F17.210 Nicotine dependence, cigarettes, uncomplicated; Z71.6 Tobacco abuse counseling; Z79.899 Other long term (current) drug therapy; Z91.51 Personal history of suicidal behavior; Z56.0 Unemployment, unspecified; Z71.51 Drug abuse counseling and surveillance of drug abuser; Z81.8 Family history of other mental and behavioral disorders
CPT/HCPCS: 80053; 80061; 82075; 83036; 84443; 85025; 87635; 99285

== ENCOUNTER 2021-10-19 09:43 | Emergency (ER) | payer OTHER ==
[2021-10-19 09:55] VITALS: TEMP 98
[2021-10-19] MEDS ORDERED: SODIUM CHLORIDE 0.9% 1,000 ML IV STA (11:25)
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
[2021-10-19 12:39] LABS: Basophils % (A) 1 %; Eosinophils # (A) 0.1 k/uL (0-0.7); Eosinophils % (A) 2 %; HCT 39.4 % (34.0-46.0); Lymphocytes # (A) 1.2 k/uL (1.0-4.8); Lymphocytes % (A) 16 %; MCH 30.9 pg (25.0-35.0); MCHC 33.1 g/dL (31.0-37.0); MCV 93.6 fL (80.0-100.0); Monocytes # (A) 0.3 k/uL (0-1.0); Monocytes % (A) 5 %; Neutrophils # (A) 5.4 k/uL (1.3-7.7); Neutrophils % (A) 75 %; Platelet Count 215 k/uL (150-450); RBC 4.21 m/uL (3.80-5.40); WBC 7.2 k/uL (3.8-10.6)
[2021-10-19 13:07] LABS: ALT 14 U/L (4-34); Acetaminophen <10.0 ug/mL; African American GFR (CKD) >90 (>60 ml/min/1.73 sqM); Alcohol <10 mg/dL; Anion Gap 7 mmol/L; Blood Urea Nitrogen 6 mg/dL (7-17); Calcium 8.9 mg/dL (8.4-10.2); Carbon Dioxide 25 mmol/L (22-30); Chloride 108 mmol/L (98-107); Glucose 111 mg/dL (74-99); Non-African American GFR(CKD) >90 (>60 ml/min/1.73 sqM); Salicylate <1.0 mg/dL; Sodium 140 mmol/L (137-145); Total Bilirubin 0.8 mg/dL (0.2-1.3)
[2021-10-19 13:21] LABS: Potassium 4.8 mmol/L (3.5-5.1)
[2021-10-19 13:22] LABS: AST 31 U/L (14-36); Albumin 4.4 g/dL (3.5-5.0); Alkaline Phosphatase 51 U/L (38-126)
[2021-10-19 14:10] LABS: Appearance,Urine Cloudy (Clear); Bacteria,Urine Rare /hpf; Bilirubin,Urine Negative (Negative); Blood,Urine Negative (Negative); Color,Urine Yellow; Glucose,Urine (UA) Negative (Negative); Ketones,Urine Negative (Negative); Leukocyte Esterase,Urine Negative (Negative); Mucus,Urine Many /hpf; Nitrite,Urine Negative (Negative); Protein,Urine Trace (Negative); RBC,Urine 2 /hpf (0-5); Specific Gravity,Urine 1.029 (1.001-1.035); Squamous Epithelial Cell,Urine 12 /hpf (0-4); WBC,Urine 2 /hpf (0-5)
[2021-10-19 14:19] LABS: Amphetamine Screen,Urine Not Detected (NotDetected); Barbiturate Screen,Urine Not Detected (NotDetected); Benzodiazepines Screen,Urine Not Detected (NotDetected); Cocaine Screen,Urine Detected (NotDetected); Methadone Screen, Urine Not Detected (NotDetected); Opiate Screen,Urine Not Detected (NotDetected); Oxycodone Screen, Urine Not Detected (NotDetected); Phencyclidine Screen,Urine Not Detected (NotDetected); Tricyclic Antidepressant,Urine Not Detected (NotDetected); Urn Cannabinoid Scrn Not Detected (NotDetected)
[2021-10-19 15:04] VITALS: BP 117/64; PULSE 78; RESP 18
== END 2021-10-19 15:04 | disposition home or self-care (01) ==
LOC: EC 09:43
DX: F14.10 Cocaine abuse, uncomplicated (principal); Z87.891 Personal history of nicotine dependence
CPT/HCPCS: 36415; 93005; 80053; 83605; 85025; 81001; 81025; 80306; 80143; 80179; 99285; 96360; 96361; G0480; 80320